=== PATIENT | female | born 1940 | race Caucasian/White ===

== ENCOUNTER → 2017-09-15 10:52 | Outpatient (CLI) | payer OTHER, SELFPAY ==
--- NOTE | 2017-09-15 | DI.MG.S_ITS ---
BILATERAL DIGITAL SCREENING MAMMOGRAM 3D/2D WITH CAD: 09/15/2017 CLINICAL: Routine screening. Family history of breast cancer. Comparison is made to exams dated: 09/15/2017 mammogram, 08/02/2016 mammogram, and 06/22/2015 mammogram - [facility]. The tissue of both breasts is heterogeneously dense. This may lower the sensitivity of mammography. Current study was also evaluated with a Computer Aided Detection (CAD) system. No significant masses, calcifications, or other findings are seen in either breast. There has been no significant interval change. IMPRESSION: NEGATIVE There is no mammographic evidence of malignancy. A 1 year screening mammogram is recommended. This exam was interpreted at Station ID: [id number]. NOTE: For mammograms, a report in lay terms will be sent to the patient. Approximately 15% of breast malignancies will not be visualized mammographically. In the management of a palpable breast mass, a negative mammogram must not discourage biopsy of a clinically suspicious lesion. Electronically Signed By: Pete kapadia/michell:09/15/2017 16:40:06 letter sent: Normal Exam ACR BI-RADS Category 1: Negative 3341F
== END ==
PROVIDERS: Family Provider Family Medicine; PCP Family Medicine; Visit Provider Family Medicine
DX: Z12.31 Encounter for screening mammogram for malignant neoplasm of breast (principal); Z80.3 Family history of malignant neoplasm of breast
CPT/HCPCS: 77063; 77067

== ENCOUNTER → 2018-08-21 15:45 | Outpatient (CLI) | payer OTHER, SELFPAY ==
[2018-08-21 18:46] LABS: Thyroid Stimulating Hormone 1.34 uIU/mL (0.47-4.68)
== END ==
PROVIDERS: PCP Family Medicine; Visit Provider Family Medicine
DX: E03.9 Hypothyroidism, unspecified (principal)
CPT/HCPCS: 84443

== ENCOUNTER → 2018-09-24 10:09 | Outpatient (CLI) | payer OTHER, SELFPAY ==
--- NOTE | 2018-09-24 10:09 | DI.MG.S_ITS ---
BILATERAL DIGITAL SCREENING MAMMOGRAM 3D/2D WITH CAD: 09/24/2018 CLINICAL: Routine screening. Family history of breast cancer. Comparison is made to exams dated: 09/15/2017 mammogram, 08/02/2016 mammogram, and 06/22/2015 mammogram - [facility]. The tissue of both breasts is heterogeneously dense. This may lower the sensitivity of mammography. Current study was also evaluated with a Computer Aided Detection (CAD) system. There are benign post operative findings in the left breast. No significant masses, calcifications, or other findings are seen in either breast. There has been no significant interval change. IMPRESSION: There is no mammographic evidence of malignancy. A 1 year screening mammogram is recommended. This exam was interpreted at Station ID: [id number]. NOTE: For mammograms, a report in lay terms will be sent to the patient. Approximately 15% of breast malignancies will not be visualized mammographically. In the management of a palpable breast mass, a negative mammogram must not discourage biopsy of a clinically suspicious lesion. Electronically Signed By: Good macias/michell:09/24/2018 10:49:46 letter sent: Normal Exam ACR BI-RADS Category 2: Benign Finding(s) 3342F
== END ==
PROVIDERS: PCP Family Medicine; Visit Provider Family Medicine
DX: Z12.31 Encounter for screening mammogram for malignant neoplasm of breast (principal); Z80.3 Family history of malignant neoplasm of breast; Z13.220 Encounter for screening for lipoid disorders
CPT/HCPCS: 77063; 77067

== ENCOUNTER → 2018-12-15 15:45 | Outpatient (CLI) | payer OTHER, SELFPAY ==
[2018-12-15 16:58] LABS: Erythrocyte Sedimentation Rate 1 MM/HR (0-20)
[2018-12-15 17:19] LABS: C-Reactive Protein Quant < 0.5 mg/dL (<1.0)
== END ==
PROVIDERS: PCP Family Medicine; Visit Provider Family Medicine
DX: R51 Headache (principal)
CPT/HCPCS: 36415; 85651; 86140

== ENCOUNTER 2019-06-18 08:14 | Day surgery (SDC) | payer OTHER, SELFPAY ==
[2019-06-18 08:51] VITALS: BP 160/86; PULSE 81; RESP 14; TEMP 36.7; O2SAT 99; BMI 20.7
[2019-06-18] MEDS: SODIUM CHLORIDE 0.9% 1,000 ML 200 ML IV (09:05)
--- NOTE | 2019-06-18 09:43 | PM.HP.1 ---
History of Present Illness History of Present Illness Date Patient Seen: 06/18/19 Time Patient Seen: 09:43 Chief complaint: [id number] Narrative: This is a 79-year-old woman with a history of colon cancer which was removed through a transanal excision in 2010. She is here for a surveillance colonoscopy. She has had them every 5 years since her surgery. She denies any current symptoms of melena or hematochezia, unexplained abdominal pain or unexplained weight loss. She says she is otherwise quite healthy, and denies any other concerning symptoms. ROS: Thirteen system review is otherwise negative other than as mentioned below and in HPI. PE: GENERAL: Well groomed and cooperative. Appears younger than stated age. Answers questions promptly and appropriately. Vital signs noted. HENT: Normocephalic, atraumatic. Hearing intact. Oral mucosa is pink and moist. EYES: Conjunctiva pink, sclera white, no periorbital swelling. CARDIOVASCULAR: Regular rate. No pedal edema. RESPIRATORY: Non-tachypneic, breathing comfortably on room air. GASTROINTESTINAL: Abdomen soft and non-distended GENITALURINARY: No flank tenderness. MUSCULOSKELETAL: Equal tone and mass bilaterally. SKIN: Warm, dry, soft, appropriate color for ethnicity. No other lesions, rashes, or wounds. NEURO: Alert and Oriented X 3. No gross sensory deficits, or cognitive issues. PSYCH: Appropriate affect and mood. Patient History Medical History Anemia (Chronic 1970) Ankle fracture (Resolved 2008) Ankle pain (Chronic 2008) Asthma (Chronic) Chicken pox (Resolved 1946) Chronic cough (Chronic 1999) Colorectal cancer (Resolved 2010) Diabetes mellitus (Chronic) Eczema (Chronic 1941) Hayfever (Chronic 1941) Hyperlipidemia (Chronic) Measles (Resolved 1953) Osteopenia (Chronic 1999) Plantar warts (Resolved 1955) Premature ventricular contractions (Chronic 2011) Shoulder pain (Chronic 2002) Squamous cell carcinoma of left lower leg (Resolved 08/2013) Thyroiditis (Chronic 1989) Urinary incontinence (Chronic 2012) Surgical History Anesthesia (Resolved) History of ankle surgery (Resolved 06/2008) History of cataract removal with insertion of prosthetic lens (Resolved) History of excision of mass (Resolved 04/2010) History of foot surgery (Resolved ~1997) History of oral surgery (Resolved 1999) History of squamous cell carcinoma excision (Resolved 08/2013) History of tonsillectomy (Resolved 1946) Status post breast biopsy (Resolved) Status post cholecystectomy (Resolved ~1984) Status post colonoscopy (Resolved 04/2010) Status post colonoscopy (Resolved 10/2010) Status post colonoscopy (Resolved 04/2011) Status post colonoscopy (Resolved 02/2014) Status post dilation and curettage (Resolved ~1967) Status post dilation and curettage (Resolved ~1968) Status post tubal ligation (Resolved ~1984) Family & Social History Family History Brother Alcohol abuse Diabetes mellitus Cancer Hypertension High cholesterol Septicemia Brother Alcohol abuse Drug abuse Drowning Child Age: 48 High cholesterol Child Age: 45 Seasonal allergies Mother Hypertension High cholesterol Heart disease Breast cancer Sister Age: 70 Atrial fibrillation Father Emphysema of lung Family/Other No problems noted. Social History: household members spouse lives independently Yes caregiver/support person No Tobacco & Substance use: Smoking Status Never smoker alcohol intake former Substance Use Type does not use Meds Home Medications and Allergies Home Medications Medication Instructions Recorded Confirmed Type aspirin 81 mg PO 3XW #0 03/07/11 06/18/19 History calcium carbonate [Calcium 500] 250 mg PO DAILY #0 03/07/11 06/18/19 History omega 2-obq-ryj-fish oil [Fish Oil] 2 cap PO DAILY #0 03/07/11 06/18/19 History omeprazole 20 mg PO QDAY #0 08/14/17 06/18/19 History cholecalciferol (vitamin D3) 50 2,000 unit PO DAILY 12/15/18 06/18/19 History mcg (2,000 unit) capsule simvastatin 20 mg tablet See Rx Instructions .ROUTE 02/05/19 06/18/19 Rx .COMPLEX #90 tablet cyanocobalamin (vitamin B-12) 1,000 mcg PO DAILY 06/18/19 06/18/19 History [Vitamin B-12] fluticasone propionate 2 spray INTRANASAL DAILY PRN 06/18/19 06/18/19 History Allergies Allergy/AdvReac Type Severity Reaction Status Date / Time egg [EGG] Allergy Unknown Gastrointestinal Verified 06/18/19 08:45 Upset Iodinated Contrast Media AdvReac Severe Verified 06/18/19 08:45 [IODINATED CONTRAST MEDIA - INJECTABLE IV DYE] IODINE - PAINFUL AT INJECTION SITE erythromycin base AdvReac Mild GI UPSET Unverified 12/15/18 14:53 [ERYTHROMYCIN BASE] oxycodone [OXYCODONE] AdvReac Mild GI UPSET Unverified 12/15/18 14:53 diphtheria,pertussis AdvReac Verified 06/18/19 06:10 (acell),tetanu Exam Vital Signs (past 8 hours): - 06/18/19 08:51 Temperature 98.0 F Pulse Rate 81 Respiratory Rate 14 Blood Pressure 160/86 H Pulse Oximetry 99 Oxygen Delivery Method Room Air Assessment & Plan Assessment and plan (1) History of colon cancer: Current visit: Yes Status: Acute Assessment & Plan narrative: Risks and benefits of screening colonoscopy and possible polypectomy were discussed with the patient including risk of bleeding, perforation, need for additional procedures, risks of anesthesia. The patient desires to proceed with the colonoscopy procedure. Time Spent With Patient Time with patient: 15-24 minutes Quality VTE Deep Vein Thrombosis/Pulmonary Embolism Present on Admission: No
--- NOTE | 2019-06-18 10:03 | PM.OP.ENDO ---
Operative Date/Time/Diagnoses Date of procedure: 06/18/19 Time of procedure: 10:04 Pre-op diagnosis: History of colon cancer Post-op diagnosis: other (History of colon cancer) Procedure & Clinicians Study performed: Attempted colonoscopy, could not get past rectosigmoid junction Same procedure as scheduled: No Indications: Patient with history of rectal cancer Surgeon: Hailee Lau Procedure Notes SCOAP/Timeout: Performed Procedure in detail: The patient was brought to the room and placed in left lateral decubitus position with all bony prominences padded. A time-out was performed and then the patient was given procedural sedation starting with 2 mg of Versed and [100] mcg of fentanyl. A total of 4 mg of Versed 150 micro g of fentanyl were given for the entire procedure. Vitals were monitored throughout the procedure and remained stable. Once adequately sedated the procedure was begun. A rectal exam was performed revealing [no abnormalities]. The colonoscope was then introduced to the rectum and I attempted to advance it through the colon. She had a very tight turn at the rectosigmoid junction, and I could not get around it even with multiple maneuvers. Ultimately procedure was aborted due to risk of perforation. The scope was then withdrawn from the rectum the procedure was concluded. The patient tolerated the procedure well and was transferred to the PACU in stable condition. Sedation minutes: 16 Specimen(s): none sent Complications: other (Unable to pass the rectosigmoid junction due to a very tight rectal valve or stenosis of the colon) Post-procedure Recommendations: Other recommendation (Will recommend barium enema, and consider repeat colonoscopy or CT colonography depending on findings of the barium enema) Plan for aftercare: Schedule for barium enema Follow up: weeks Disposition: PACU
[2019-06-18] MEDS: MIDAZOLAM 5 MG/ML VIAL 4 MG IV (10:07)
[2019-06-18] MEDS: fentaNYL 250 MCG/5 ML INJ IV (10:07)
[2019-06-18 10:08] VITALS: BP 108/65; PULSE 85; RESP 21; TEMP 36.1; O2SAT 94
[2019-06-18 10:13] VITALS: BP 94/52; PULSE 78; RESP 11; O2SAT 93
[2019-06-18 10:18] VITALS: BP 93/53; PULSE 75; RESP 11; O2SAT 95
[2019-06-18 10:23] VITALS: BP 127/82; PULSE 93; RESP 14; O2SAT 98
[2019-06-18 10:45] VITALS: BP 139/76; PULSE 74; RESP 20; O2SAT 97
== END 2019-06-18 11:00 | disposition home or self-care (01) ==
PROVIDERS: PCP Family Medicine; Referring Provider Family Medicine; Visit Provider Surgery
PROC: 0DJD8ZZ Inspection of Lower Intestinal Tract, Via Natural or Artificial Opening Endoscopic (ICD-10-PCS; CPT 45378; principal; 2019-06-18 09:15)
DX: Z12.11 Encounter for screening for malignant neoplasm of colon (principal); Z85.038 Personal history of other malignant neoplasm of large intestine; K62.4 Stenosis of anus and rectum; Z53.09 Procedure and treatment not carried out because of other contraindication
CPT/HCPCS: G0105; 99152; J2250; J3010

== ENCOUNTER → 2019-06-30 10:39 | Outpatient (CLI) | payer OTHER, SELFPAY ==
--- NOTE | 2019-06-30 10:42 | DI.RAD.S_ITS ---
PROCEDURE: FL ABDOMEN 1V (BARIUM ENEMA) INDICATIONS: incomplete colonoscopy; stenosis and rectosigmoid junction TECHNIQUE: One view of the abdomen acquired. COMPARISON: None. FINDINGS: Surgical changes and devices: None. Bowel: Bowel gas pattern is free of evidence of obstruction. There is a concern for presence of stool within the left colon, to the degree that the study will be delayed for additional bowel preparation. Soft tissues: No suspicious abdominal calcifications. Visualized solid organ contours appear normal in size. Bones: No suspicious bony lesions. IMPRESSION: Probable incomplete preparation for barium enema, and for this reason the patient will continue bowel preparation and return in one day before the examination. Dictated by: Geovanni Simpson M.D. on 06/30/2019 at 12:46 Approved by: Geovanni Simpson M.D. on 06/30/2019 at 12:47
== END ==
PROVIDERS: PCP Family Medicine; Referring Provider Surgery; Visit Provider Surgery
DX: Z12.11 Encounter for screening for malignant neoplasm of colon (principal); K56.699 Other intestinal obstruction unspecified as to partial versus complete obstruction; Z85.038 Personal history of other malignant neoplasm of large intestine
CPT/HCPCS: 74018

== ENCOUNTER → 2019-07-01 07:42 | Outpatient (CLI) | payer OTHER, SELFPAY ==
--- NOTE | 2019-07-01 | DI.RAD.S_ITS ---
PROCEDURE: FL BARIUM ENEMA W AIR CONTRAST INDICATIONS: Personal history of other malignant neoplasm of [place] COMPARISON: None. FINDINGS: KUB: Pre-procedural appraiser oil and water film demonstrates a normal bowel gas pattern. No suspicious abdominal calcifications. Visualized solid organ contours are normal in size. No suspicious bony lesions. Colon: There is adequate air-contrast opacification from the rectum to the cecum. No strictures, ulcers, polyps, or masses are seen. Haustral folds are normal in thickness throughout. No diverticula. IMPRESSION: No polyp is found, no area of stricture is identified. By this examination no significant diverticulosis would be suspected. Overall the study is excellent in quality, shows moderate redundancy of the colon, and no evidence of underlying benign stricture or presence of a malignant lesion. Dictated by: Geovanni Simpson M.D. on 07/01/2019 at 10:37 Approved by: Geovanni Simpson M.D. on 07/01/2019 at 10:39
== END ==
PROVIDERS: PCP Family Medicine; Referring Provider Surgery; Visit Provider Surgery
DX: Z12.11 Encounter for screening for malignant neoplasm of colon (principal); Z85.038 Personal history of other malignant neoplasm of large intestine; K56.699 Other intestinal obstruction unspecified as to partial versus complete obstruction
CPT/HCPCS: 74280

== ENCOUNTER → 2020-05-24 08:44 | Outpatient (CLI) | payer MEDICARE, SELFPAY ==
[2020-05-24] MEDS: COVID-19 VACC #1, MRNA(MOD) 100 MCG/0.5 ML VIAL IM (08:49)
== END ==
PROVIDERS: PCP Family Medicine; Visit Provider Internal Medicine
DX: Z23 Encounter for immunization (principal)
CPT/HCPCS: 0011A; 91301

== ENCOUNTER → 2020-06-21 08:59 | Outpatient (CLI) | payer MEDICARE, SELFPAY ==
[2020-06-21] MEDS: COVID-19 VACC #2, MRNA(MOD) 100 MCG/0.5 ML VIAL IM (09:07)
== END ==
PROVIDERS: PCP Family Medicine; Visit Provider Internal Medicine
DX: Z23 Encounter for immunization (principal)
CPT/HCPCS: 0012A; 91301

== ENCOUNTER → 2020-07-14 11:10 | Outpatient (CLI) | payer OTHER, SELFPAY ==
[2020-07-14 12:38] LABS: Alanine Aminotransferase 18 IU/L (<35); Albumin 4.8 g/dL (3.5-5.0); Albumin Globulin Ratio 1.7 (1.0-2.8); Alkaline Phosphatase 63 U/L (38-126); Aspartate Aminotransferase 32 IU/L (14-36); BUN Creatinine Ratio 21.1 (6-22); Bilirubin Total 0.5 mg/dL (0.2-1.3); Blood Urea Nitrogen 19 mg/dL (7-17); Calcium 10.2 mg/dL (8.4-10.2); Carbon Dioxide 27 mmol/L (22-32); Chloride 105 mmol/L (98-107); Cholesterol 199 mg/dL (140-199); Estimated Glomerular Filt Rate > 60.0 mL/min (>60); Globulin 2.9 g/dL (1.7-4.1); Glucose 97 mg/dL (80-110); HDL Cholesterol 83 mg/dL (40-60); HEMOLYSIS < 15 (0-50); LDL Cholesterol Calculated 92 mg/dL (<100); Potassium 4.2 mmol/L (3.4-5.1); Sodium 140 mmol/L (137-145); Total Protein 7.7 g/dL (6.3-8.2); Triglycerides 118 mg/dL (35-150)
[2020-07-14 13:09] LABS: TSH w/ Reflex to FT4 1.23 uIU/mL (0.47-4.68)
== END ==
PROVIDERS: PCP Family Medicine; Referring Provider Family Medicine; Visit Provider Family Medicine
DX: Z86.39 Personal history of other endocrine, nutritional and metabolic disease (principal); E78.5 Hyperlipidemia, unspecified
CPT/HCPCS: 36415; 80053; 80061; 84443

== ENCOUNTER → 2020-07-31 16:03 | Outpatient (CLI) | payer OTHER, SELFPAY ==
--- NOTE | 2020-07-31 16:05 | DI.MG.S_ITS ---
BILATERAL DIGITAL SCREENING MAMMOGRAM 3D/2D WITH CAD: 07/31/2020 CLINICAL: Routine screening. Family history of breast cancer. Comparison is made to exams dated: 09/24/2018 mammogram, 09/15/2017 mammogram, 09/15/2017 mammogram, 06/22/2015 mammogram, and 06/20/2014 mammogram - [facility]. The tissue of both breasts is heterogeneously dense. This may lower the sensitivity of mammography. Current study was also evaluated with a Computer Aided Detection (CAD) system. There are benign post operative findings in the left breast. No significant masses, calcifications, or other findings are seen in either breast. There has been no significant interval change. IMPRESSION: BENIGN There is no mammographic evidence of malignancy. A 1 year screening mammogram is recommended. This exam was interpreted at Station ID: [id number]. NOTE: For mammograms, a report in lay terms will be sent to the patient. Approximately 15% of breast malignancies will not be visualized mammographically. In the management of a palpable breast mass, a negative mammogram must not discourage biopsy of a clinically suspicious lesion. Electronically Signed By: Good macias/michell:07/31/2020 16:38:29 letter sent: Normal Exam ACR BI-RADS Category 2: Benign Finding(s) 3342F
== END ==
PROVIDERS: PCP Family Medicine; Referring Provider Family Medicine; Visit Provider Family Medicine
DX: Z12.31 Encounter for screening mammogram for malignant neoplasm of breast (principal)
CPT/HCPCS: 77063; 77067

== ENCOUNTER → 2021-07-20 10:04 | Outpatient (CLI) | payer OTHER, SELFPAY ==
[2021-07-20 12:07] LABS: Thyroid Stimulating Hormone 1.44 uIU/mL (0.47-4.68)
== END ==
PROVIDERS: PCP Family Medicine; Referring Provider Family Medicine; Visit Provider Family Medicine
DX: Z13.9 Encounter for screening, unspecified (principal)
CPT/HCPCS: 36415; 84443

== ENCOUNTER → 2021-07-23 08:19 | Outpatient (CLI) | payer OTHER, SELFPAY ==
[2021-07-25 15:15] LABS: Fecal Immunochemical Test Negative (Negative)
== END ==
PROVIDERS: PCP Family Medicine; Referring Provider Family Medicine; Visit Provider Family Medicine
DX: Z12.11 Encounter for screening for malignant neoplasm of colon (principal)
CPT/HCPCS: 82274

== ENCOUNTER → 2021-08-02 10:17 | Outpatient (CLI) | payer OTHER, SELFPAY ==
--- NOTE | 2021-08-02 | DI.MG.S_ITS ---
BILATERAL DIGITAL SCREENING MAMMOGRAM 3D/2D WITH CAD: 08/02/2021 CLINICAL: Routine screening. Family history of breast cancer. Comparison is made to exams dated: 07/31/2020 mammogram, 09/24/2018 mammogram, and 09/15/2017 mammogram - [facility]. The tissue of both breasts is heterogeneously dense. This may lower the sensitivity of mammography. Current study was also evaluated with a Computer Aided Detection (CAD) system. There are benign post operative findings in the left breast. No significant masses, calcifications, or other findings are seen in either breast. There has been no significant interval change. IMPRESSION: BENIGN There is no mammographic evidence of malignancy. A 1 year screening mammogram is recommended. This exam was interpreted at Station ID: [id number]. NOTE: For mammograms, a report in lay terms will be sent to the patient. Approximately 15% of breast malignancies will not be visualized mammographically. In the management of a palpable breast mass, a negative mammogram must not discourage biopsy of a clinically suspicious lesion. Electronically Signed By: Good macias/michell:08/02/2021 13:00:34 letter sent: Normal Exam ACR BI-RADS Category 2: Benign Finding(s) 3342F
== END ==
PROVIDERS: PCP Family Medicine; Referring Provider Family Medicine; Visit Provider Family Medicine
DX: Z12.31 Encounter for screening mammogram for malignant neoplasm of breast (principal); Z80.3 Family history of malignant neoplasm of breast
CPT/HCPCS: 77063; 77067

== ENCOUNTER 2022-04-09 13:17 | Emergency (ER) | payer OTHER, SELFPAY ==
[2022-04-09 13:27] VITALS: BP 134/85; PULSE 92; RESP 15; TEMP 36.1; O2SAT 95; BMI 21.7
--- NOTE | 2022-04-09 13:29 | DI.RAD.S_ITS ---
PROCEDURE: XR KNEE LT 3V INDICATIONS: knee injury,fell onto it TECHNIQUE: 3 views of the knee were acquired. COMPARISON: None. FINDINGS: Bones: Minimally displaced fracture of the patella. Soft tissues: Small suprapatellar joint effusion. No suspicious soft tissue calcifications. IMPRESSION: Patella fracture. Dictated by: Desire Zamudio MD, PhD on 04/09/2022 at 13:56 Approved by: Desire Zamudio MD, PhD on 04/09/2022 at 13:56
[2022-04-09 16:25] VITALS: BP 165/87; PULSE 90; O2SAT 96
--- NOTE | 2022-04-09 16:28 | ED.LOWEXIN ---
HPI - Extremity Injury (Lower) <Camila Soriano PA-C - Last Filed: 04/09/22 17:32> General Chief Complaint: Extremity Injury, Lower Stated Complaint: lt knee injury s/p fall Time Seen by Provider: 04/09/22 16:13 Source: patient Mode of arrival: Wheelchair History of Present Illness HPI Narrative: 82-year-old female presents with concern for left knee pain after she fell today while bringing her trash down the driveway. Patient states that her driveway slightly angled in his she near the bottom at the street where flattens out she slipped and had a mechanical fall and went down onto her hands and knees. She did not hit her head or sustain other injuries she has abrasions to her hands at the base but she says these feel fine. She also has abrasions to both knees but states that her left knee is very painful when she tries to straighten or bend her leg with any movement and she is been unable to walk on it without pain since the event. Some people were driving by and saw her and assisted her other than attempting to walk initially she has not walked on it at all since this happened. She denies any previous injury to this knee or any other complaints or concerns she also denies any numbness or tingling in the affected extremity, also denies any prodrome of dizziness palpitations or vision change prior to the event.. She did not hit her head or lose consciousness. Related Data Home Medications Medication Instructions Recorded Confirmed aspirin 81 mg tablet,delayed 81 mg PO 3XW ##0 03/07/11 07/14/20 release calcium carbonate 500 mg calcium 250 mg PO DAILY ##0 03/07/11 07/14/20 (1,250 mg) tablet (Calcium 500) omega 9-cjd-ghl-fish oil 1,000 mg 2 cap PO DAILY ##0 03/07/11 07/14/20 (120 mg-180 mg) capsule (Fish Oil) omeprazole 20 mg tablet,delayed 20 mg PO QDAY ##0 08/14/17 07/14/20 release cholecalciferol (vitamin D3) 50 2,000 unit PO DAILY 12/15/18 07/14/20 mcg (2,000 unit) capsule Previous Rx's Medication Instructions Recorded fluticasone propionate 50 2 spray intranasal DAILY #48 grams 07/06/21 mcg/actuation nasal spray,suspension (Allergy Relief (fluticasone)) simvastatin 20 mg tablet See Rx Instructions .Route 07/20/21 .COMPLEX #90 tabs nirmatrelvir 150 mg-ritonavir 100 See Rx Instructions PO PER PKG DIR 10/23/21 mg tablets in a dose pack (EUA) #20 tabs (Paxlovid) Allergies Allergy/AdvReac Type Severity Reaction Status Date / Time egg [EGG] Allergy Unknown Gastrointestinal Verified 04/09/22 13:26 Upset Iodinated Contrast Media AdvReac Severe Verified 04/09/22 13:26 [IODINATED CONTRAST MEDIA - INJECTABLE IV DYE] IODINE - PAINFUL AT INJECTION SITE erythromycin base AdvReac Mild GI UPSET Verified 04/09/22 13:26 [ERYTHROMYCIN BASE] oxycodone [OXYCODONE] AdvReac Mild GI UPSET Verified 04/09/22 13:26 diphtheria,pertussis AdvReac Verified 04/09/22 13:26 (acell)matthew Review of Systems <Camila Soriano PA-C - Last Filed: 04/09/22 17:32> Review of Systems Narrative: Unremarkable except as noted in the HPI Patient History <Camila Soriano PA-C - Last Filed: 04/09/22 17:32> Medical History Anemia (1970) Ankle fracture (2008) Ankle pain (2008) Asthma Chicken pox (1946) Chronic cough (1999) Colorectal cancer (2010) Eczema (1942) Hayfever (194) Hyperlipidemia Measles (1953) Osteopenia (1999) Plantar warts (1955) Premature ventricular contractions (2011) Shoulder pain (2002) 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) Thyroiditis (1989) Urinary incontinence (2012) Surgical History Anesthesia History of ankle surgery (06/2008) History of cataract removal with insertion of prosthetic lens History of excision of mass (04/2010) History of foot surgery (~1997) History of oral surgery (1999) History of squamous cell carcinoma excision (08/2013) History of tonsillectomy (194) Status post breast biopsy Status post cholecystectomy (~1984) Status post colonoscopy (04/2010) Status post colonoscopy (10/2010) Status post colonoscopy (04/2011) Status post colonoscopy (02/2014) Status post dilation and curettage (~1967) Status post dilation and curettage (~1968) Status post tubal ligation (~1984) Family History Brother Alcohol abuse Diabetes mellitus Cancer Hypertension High cholesterol Septicemia Brother Alcohol abuse Drug abuse Drowning Child Age: 50 High cholesterol Child Age: 47 Seasonal allergies Mother Hypertension High cholesterol Heart disease Breast cancer Sister Age: 72 Atrial fibrillation Father Emphysema of lung Family/Other No problems noted. Social History marital status: number of children: 3 household members: spouse lives independently: Yes caregiver/support person: No housing: house Smoking Status: Never smoker second hand exposure: No alcohol intake: former substance use type: does not use Smoking Status: Never smoker alcohol intake frequency: holidays/special occasions only Substance Use Type: does not use Exam <Camila Soriano PA-C - Last Filed: 04/09/22 17:32> Narrative Exam Narrative: GENERAL: 82 year old patient appears stated age. Well-developed patient, in mild distress. HEAD: Atraumatic. Normocephalic. EYES: Pupils equal round and reactive. Extraocular motions intact. No scleral icterus. No injection or drainage. ENT: Nose without bleeding, purulent drainage. Airway patent. NECK: Trachea midline. Non tender CARDIOVASCULAR: Regular rate and rhythm without murmurs, gallops, or rubs. RESPIRATORY: Clear to auscultation. Breath sounds equal bilaterally. No wheezes, rales, or rhonchi. EXTREMITIES: There are superficial abrasions to both palms at the base of the palm near the wrist. Bilateral wrists and hands have normal active range of motion and strength with normal movement of the fingers. Bilateral knees have abrasions. Right knee and lower extremity has normoactive range of motion pain-free. The left knee has swelling and an effusion lateral to the patella, there is significant tenderness with a polyp palpation over the patella, she has pain but is able to tolerate straightening the leg slightly. Movement at the ankle is intact. No edema or joint tenderness. Sensation of the affected extremities intact. BACK: Nontender without deformity or crepitance. No flank tenderness. NEURO: AOx3. SKIN: No rash or erythema of visible areas Initial Vital Signs Initial Vital Signs: Vital Signs Temperature 97.0 F L 04/09/22 13:27 Pulse Rate 92 H 04/09/22 13:27 Respiratory Rate 15 04/09/22 13:27 Blood Pressure 134/85 04/09/22 13:27 Pulse Oximetry 95 04/09/22 13:27 Oxygen Delivery Method 04/09/22 13:27 <Dinorah Quezada DO - Last Filed: 04/10/22 23:07> Initial Vital Signs Initial Vital Signs: Vital Signs Temperature 97.0 F L 04/09/22 13:27 Pulse Rate 92 H 04/09/22 13:27 Respiratory Rate 15 04/09/22 13:27 Blood Pressure 134/85 04/09/22 13:27 Pulse Oximetry 95 04/09/22 13:27 Oxygen Delivery Method 04/09/22 13:27 Course <Camila Soriano PA-C - Last Filed: 04/09/22 17:32> Orders Ordered: ED Orders 04/09/22 13:29 XR knee LT 3V Stat Consultations Consultation #1: Did review imaging and discussed this patient with attending physician Dr. Quezada, feels knee immobilizeris appropriate with crutches and close orthopedic follow-up as she may need surgery. Time: 16:30 Vital Signs Vital signs: Vital Signs - 8 hr 04/09/22 13:27 04/09/22 16:25 Temperature 97.0 F L Pulse Rate 92 H 90 Respiratory Rate 15 Blood Pressure 134/85 165/87 H Pulse Oximetry 95 96 Oxygen Delivery Method Room Air Room Air <Dinorah Quezada DO - Last Filed: 04/10/22 23:07> Orders Ordered: ED Orders 04/09/22 13:29 XR knee LT 3V Stat Vital Signs Vital signs: Vital Signs - 8 hr 04/09/22 13:27 04/09/22 16:25 Temperature 97.0 F L Pulse Rate 92 H 90 Respiratory Rate 15 Blood Pressure 134/85 165/87 H Pulse Oximetry 95 96 Oxygen Delivery Method Room Air Room Air MDM - Extremity Injury (Lower) <Camila Soriano PA-C - Last Filed: 04/09/22 17:32> Differential Diagnosis Differential diagnosis: Likely acute internal derangement of knee and other Imaging Data Extremity x-ray #1: My Impression: I have reviewed the imaging and agree with radiologist's interpretation. Radiologist's Impression: [address] [address] XRay Report Signed Patient: Christine Torres MR#: [id number] : 1940 Acct:[id number] Age/Sex: 82 / F Date of Service: 04/09/22 Loc: ED Accession Number: [id number] ?? Procedure: XR knee LT 3V Ordering Provider: Dinorah Quezada D.O. PROCEDURE:? XR KNEE LT 3V ? INDICATIONS:? knee injury,fell onto it ? TECHNIQUE:? 3 views of the knee were acquired.? ? COMPARISON:? None. ? FINDINGS:? ? Bones:? Minimally displaced fracture of the patella. ? Soft tissues:? Small suprapatellar joint effusion.? No suspicious soft tissue calcifications.? ? ? IMPRESSION:? Patella fracture. ? ? Dictated by: Desire Zamudio MD, PhD on 04/09/2022 at 13:56 ? ? Approved by: Desire Zamudio MD, PhD on 04/09/2022 at 13:56?? MDM Narrative Medical decision making narrative: This is an 82-year-old female who is normally active and ambulatory without assistance presents with left knee pain after falling onto hands and knees today on a slight slope. Imaging with x-ray reveals a patellar fracture laterally with pieces well-positioned/well-aligned. Patient is placed in a knee immobilizer for support and provided with crutches. Patient has used crutches previously due to previous ankle injury and feels comfortable with this. Referral for Orthopedics for close follow-up for consultation and possible surgery. She is encouraged to take Tylenol and ibuprofen or Advil for pain as well as use elevation and rest. She is advised to stay off of the affected extremity and be nonweightbearing on it. Return precautions provided, follow-up plan discussed, all questions answered. Discharge Plan Departure Patient Disposition: Home Clinical Impression: Fracture, patella, Fall Instructions: DI for Fracture Activity Restrictions/Additional Instructions: Thank you for letting us be part of her care in the emergency department today. Unfortunately did fracture your knee cap or patella on the left. It is possible that this will require surgery and he will need to follow-up with Orthopedics, I have placed a referral to them today. Also recommend using Tylenol and ibuprofen to help with pain as well as ice if that feels better, we placed you in a supportive knee immobilizer device as well as given crutches as I would like you to be not putting weight on the affected leg until you are further evaluated by Orthopedics. There is no evidence of an emergent or life threatening illness at this time, but follow up with your doctor in 1-2 days is recommended nonetheless to continue to rule out serious underlying causes of your symptoms. Please call the office for an appointment. Please return to the Emergency Department for any worsening or persistent symptoms. Please take medications as directed. Prescriptions: No Action cholecalciferol (vitamin D3) 2,000 unit capsule 2,000 unit PO DAILY simvastatin 20 mg tablet See Rx Instructions .ROUTE .COMPLEX Qty: 90 3RF Dose Instruction: Take 1 tablet (20 mg) by mouth daily Rx Instructions: Take 1 tablet (20 mg) by mouth daily calcium carbonate [Calcium 500] 500 mg calcium (1,250 mg) Tablet 250 mg PO DAILY Qty: 0 omega 0-ahe-mkv-fish oil [Fish Oil] 1,000 mg (120 mg-180 mg) Capsule 2 cap PO DAILY Qty: 0 aspirin 81 MG tablet,delayed release (DR/EC) 81 mg PO 3XW Qty: 0 omeprazole 20 MG tablet,delayed release (DR/EC) 20 mg PO QDAY Qty: 0 fluticasone propionate [Allergy Relief (fluticasone)] 50 mcg/actuation spray,suspension 2 spray intranasal DAILY Qty: 48 3RF Rx Instructions: administer into each nostril Paxlovid (EUA) 150-100 mg tablet See Rx Instructions PO PER PKG DIR Qty: 20 0RF Rx Instructions: PO PER PKG DIR Referrals: Myriam Maciel MD [Primary Care Provider] - Siddhartha German MD [Physician] - As soon as possible (Left patellar Fx w/o displacement) Visit Report Forms: Patient Portal/API <Dinorah Quezada DO - Last Filed: 04/10/22 23:07> Cosign ED Attending Cospatriciaature Attestation: I was immediately available in the department for consultation. Documentation has been reviewed. I agree with assessment and plan.
== END 2022-04-09 17:23 | disposition home or self-care (01) ==
PROVIDERS: Emergency Provider Student in an Organized Health Care Education/Training Program; PCP Family Medicine
DX: S82.002A Unspecified fracture of left patella, initial encounter for closed fracture (principal); W01.0XXA Fall on same level from slipping, tripping and stumbling without subsequent striking against object, initial encounter
CPT/HCPCS: 29530; 73562; 99283

== ENCOUNTER → 2022-07-25 07:48 | Outpatient (CLI) | payer OTHER, SELFPAY ==
[2022-07-25 09:36] LABS: Alanine Aminotransferase 19 IU/L (<35); Albumin 4.2 g/dL (3.5-5.0); Albumin Globulin Ratio 1.5 (1.0-2.8); Alkaline Phosphatase 52 U/L (38-126); Aspartate Aminotransferase 27 IU/L (14-36); BUN Creatinine Ratio 21.4 (6-22); Bilirubin Total 0.2 mg/dL (0.2-1.3); Blood Urea Nitrogen 18 mg/dL (7-17); Calcium 9.7 mg/dL (8.4-10.2); Carbon Dioxide 29 mmol/L (22-32); Chloride 106 mmol/L (98-107); Cholesterol 172 mg/dL (140-199); Estimated Glomerular Filt Rate > 60 mL/min (>60); Globulin 2.8 g/dL (1.7-4.1); Glucose 85 mg/dL (80-110); HDL Cholesterol 76 mg/dL (40-60); HEMOLYSIS < 15 (0-50); LDL Cholesterol Calculated 79 mg/dL (<100); Potassium 3.8 mmol/L (3.4-5.1); Sodium 140 mmol/L (137-145); Triglycerides 83 mg/dL (35-150)
[2022-07-25 10:18] LABS: TSH w/ Reflex to FT4 1.54 uIU/mL (0.47-4.68)
== END ==
PROVIDERS: PCP Family Medicine; Referring Provider Family Medicine; Visit Provider Family Medicine
DX: E78.5 Hyperlipidemia, unspecified (principal); R53.83 Other fatigue
CPT/HCPCS: 36415; 80053; 80061; 84443

== ENCOUNTER → 2023-02-20 14:57 | Outpatient (CLI) | payer OTHER, SELFPAY ==
[2023-02-20 15:26] LABS: Add Manual Diff / Slide Review NO; Basophils Absolute Auto 100 /uL (0-100); Basophils Percent Auto 1.3 % (0-2); Eosinophils Absolute Auto 200 /uL (0-450); Eosinophils Percent Auto 3.2 % (2-4); Hematocrit 40.6 % (36-46); Hemoglobin 13.7 g/dL (12.0-16.0); Lymphocytes Absolute Auto 2800 /uL (1100-4500); Lymphocytes Percent Auto 37.3 % (25-40); Mean Corpuscular HGB Conc 33.9 % (30-36); Mean Corpuscular Hemoglobin 30.5 PG (26-34); Mean Corpuscular Volume 90.1 fL (80-100); Monocytes Absolute Auto 800 /uL (0-900); Neutrophils Absolute Auto 3600 /uL (1500-7000); Neutrophils Percent Auto 48.2 % (50-75); Platelet Count 335 X10^3/uL (150-400); White Blood Cell Count 7.6 X10^3/uL (4.5-11.0)
== END ==
PROVIDERS: PCP Family Medicine; Referring Provider Physician Assistant; Visit Provider Physician Assistant
DX: R21 Rash and other nonspecific skin eruption (principal); J34.89 Other specified disorders of nose and nasal sinuses
CPT/HCPCS: 36415; 85025

== ENCOUNTER → 2023-02-26 09:03 | Outpatient (CLI) | payer OTHER, SELFPAY ==
--- NOTE | 2023-02-26 09:04 | DI.CT.S_ITS ---
PROCEDURE: CT SINUS SCREEN WO CON INDICATIONS: Sinus pressure R side; persistent rash TECHNIQUE: Noncontrast 3.0 mm axial images acquired from the frontal sinuses to the mid-sella, with coronal and sagittal reformats. For radiation dose reduction, the following was used: automated exposure control, adjustment of mA and/or kV according to patient size. COMPARISON: None. FINDINGS: Image quality: Excellent. Maxillary Sinuses: No bony remodeling or destruction. Minimal mucosal thickening inferiorly. Ethmoid Air Cells: No bony remodeling or destruction. Sinuses are clear. Sphenoid Sinuses: No bony remodeling or destruction. Sinuses are clear. Frontal Sinuses: No bony remodeling or destruction. Sinuses are clear. Ostiomeatal Complexes: Ostiomeatal complexes are patent. No Tonya cells. Miscellaneous: Visualized intra-orbital contents are normal. Bilateral lens replacements. No juan bullosa or paradoxical turbinate curvature. Mild rightward nasal septal deviation. IMPRESSION: No significant paranasal sinus disease. Dictated by: Derik Santa M.D. on 02/26/2023 at 10:03 Approved by: Derik Santa M.D. on 02/26/2023 at 10:05
== END ==
PROVIDERS: PCP Family Medicine; Referring Provider Physician Assistant; Visit Provider Physician Assistant
DX: J01.90 Acute sinusitis, unspecified (principal); J34.89 Other specified disorders of nose and nasal sinuses; J34.2 Deviated nasal septum
CPT/HCPCS: 70486

== ENCOUNTER → 2023-08-19 07:59 | Outpatient (CLI) | payer OTHER, SELFPAY ==
[2023-08-19 09:33] LABS: Alanine Aminotransferase 22 IU/L (<35); Albumin 4.5 g/dL (3.5-5.0); Albumin Globulin Ratio 1.7 (1.0-2.8); Alkaline Phosphatase 59 U/L (38-126); Aspartate Aminotransferase 31 IU/L (14-36); BUN Creatinine Ratio 17.8 (6-22); Bilirubin Total 0.7 mg/dL (0.2-1.3); Blood Urea Nitrogen 16 mg/dL (7-17); Calcium 10.2 mg/dL (8.4-10.2); Carbon Dioxide 29 mmol/L (22-32); Chloride 105 mmol/L (98-107); Cholesterol 219 mg/dL (140-199); Estimated Glomerular Filt Rate > 60 mL/min (>60); Globulin 2.7 g/dL (1.7-4.1); Glucose 96 mg/dL (80-110); HDL Cholesterol 78 mg/dL (40-60); HEMOLYSIS < 15 (0-50); LDL Cholesterol Calculated 118 mg/dL (<100); Potassium 4.2 mmol/L (3.4-5.1); Sodium 139 mmol/L (137-145); Total Protein 7.2 g/dL (6.3-8.2); Triglycerides 117 mg/dL (35-150)
[2023-08-19 10:16] LABS: TSH w/ Reflex to FT4 0.93 uIU/mL (0.47-4.68)
== END ==
PROVIDERS: PCP Family Medicine; Referring Provider Family Medicine; Visit Provider Family Medicine
DX: E78.5 Hyperlipidemia, unspecified (principal); E06.9 Thyroiditis, unspecified
CPT/HCPCS: 36415; 80053; 80061; 84443

== ENCOUNTER → 2023-08-25 08:28 | Outpatient (CLI) | payer OTHER, SELFPAY ==
--- NOTE | 2023-08-25 08:29 | DI.MG.S_ITS ---
BILATERAL DIGITAL SCREENING MAMMOGRAM 3D/2D WITH CAD: 08/25/2023 CLINICAL: Routine screening. Family history of breast cancer. Comparison is made to exams dated: 08/02/2021 mammogram, 07/31/2020 mammogram, and 09/24/2018 mammogram - . Both breasts are heterogeneously dense, which may obscure small masses (category c / 51-75% glandular tissue). Current study was also evaluated with a Computer Aided Detection (CAD) system. There are benign post operative findings in the left breast. No significant masses, calcifications, or other findings are seen in either breast. There has been no significant interval change. IMPRESSION: BENIGN There is no mammographic evidence of malignancy. A 1 year screening mammogram is recommended. Based on the Tyrer Cuzick model (a risk assessment model) the patient's lifetime risk is 1.1% and her 10 year risk is 0.0%. According to the ACR, ACS, and NCCN guidelines, an annual breast MRI exam along with mammogram is recommended if the patient's lifetime risk is 20% or greater. This exam was interpreted at Station ID: [id number]. NOTE: For mammograms, a report in lay terms will be sent to the patient. Approximately 15% of breast malignancies will not be visualized mammographically. In the management of a palpable breast mass, a negative mammogram must not discourage biopsy of a clinically suspicious lesion. Electronically Signed By: Good macias/michell:08/25/2023 10:58:34 letter sent: Normal Exam ACR BI-RADS Category 2: Benign Finding(s) 3342F
== END ==
LOC: MAMMO 08:29
PROVIDERS: PCP Family Medicine; Referring Provider Family Medicine; Visit Provider Family Medicine
DX: Z12.31 Encounter for screening mammogram for malignant neoplasm of breast (principal); Z80.3 Family history of malignant neoplasm of breast; R92.333 Mammographic heterogeneous density, bilateral breasts
CPT/HCPCS: 77063; 77067

== ENCOUNTER → 2024-08-20 07:44 | Outpatient (CLI) | payer OTHER, SELFPAY ==
[2024-08-20 08:55] LABS: Alanine Aminotransferase 21 IU/L (<35); Albumin 4.4 g/dL (3.5-5.0); Albumin Globulin Ratio 1.8 (1.0-2.8); Alkaline Phosphatase 59 U/L (38-126); Aspartate Aminotransferase 32 IU/L (14-36); BUN Creatinine Ratio 21.6 (6-22); Bilirubin Total 0.8 mg/dL (0.2-1.3); Blood Urea Nitrogen 19 mg/dL (7-17); Carbon Dioxide 26 mmol/L (22-32); Chloride 106 mmol/L (98-107); Cholesterol 184 mg/dL (140-199); Estimated Glomerular Filt Rate > 60 mL/min (>60); Globulin 2.4 g/dL (1.7-4.1); Glucose 96 mg/dL (70-99); HDL Cholesterol 85 mg/dL (40-60); HEMOLYSIS < 15 (0-50); LDL Cholesterol Calculated 77 mg/dL (<100); Potassium 4.6 mmol/L (3.4-5.1); Sodium 139 mmol/L (137-145); Total Protein 6.8 g/dL (6.3-8.2); Triglycerides 109 mg/dL (35-150)
[2024-08-20 09:23] LABS: Thyroid Stimulating Hormone 1.06 uIU/mL (0.47-4.68)
== END ==
LOC: LAB 07:45
PROVIDERS: PCP Family Medicine; Referring Provider Family Medicine; Visit Provider Family Medicine
DX: E78.5 Hyperlipidemia, unspecified (principal); R53.83 Other fatigue; Z12.11 Encounter for screening for malignant neoplasm of colon
CPT/HCPCS: 36415; 80053; 80061; 82274; 84443

== ENCOUNTER → 2024-08-25 08:08 | Outpatient (CLI) | payer OTHER, SELFPAY ==
--- NOTE | 2024-08-25 08:10 | DI.MG.S_ITS ---
MM screening mammo BI: 08/25/2024. BI-RADS: 1 CLINICAL: 84-year old female for bilateral screening mammogram. Tyrer-Cuzick lifetime risk of 2.0%. Current reported family history of breast cancer: mother, paternal aunt and second paternal aunt. The patient had a prior left breast biopsy. PRIOR EXAMS 08/02/2021, 07/31/2020, 09/24/2018. MAMMOGRAPHY TECHNIQUE: 2D and 3D (tomosynthesis) digital mammographic views obtained, with additional images as needed for full coverage. Current study was also evaluated with a Computer Aided Detection (CAD) system. DENSITY C. The breasts are heterogeneously dense, which may obscure small masses. MAMMOGRAPHY FINDINGS Bilateral: No suspicious mass, asymmetry, microcalcification, or other abnormality seen. No significant change from comparison. IMPRESSION: * No evidence of malignancy. RECOMMENDATIONS Bilateral * Annual screening mammography. OVERALL ASSESSMENT CATEGORY BI-RADS-1: Negative. The [employer] recommends annual screening mammography beginning at age 40 for women with average risk of breast cancer. ELECTRONICALLY SIGNED: Dickson Sanchez M.D. on 08/25/2024 at 01:35:45 PM PT Interpreting Station ID: [id number]
== END ==
PROVIDERS: PCP Family Medicine; Referring Provider Family Medicine; Visit Provider Family Medicine
DX: Z12.31 Encounter for screening mammogram for malignant neoplasm of breast (principal); Z80.3 Family history of malignant neoplasm of breast; R92.333 Mammographic heterogeneous density, bilateral breasts
CPT/HCPCS: 77063; 77067

== ENCOUNTER 2024-09-18 15:41 | Inpatient (IN) | payer OTHER, SELFPAY ==
[2024-09-18] VITALS (12 sets, daily range): BP systolic 152–207; BP diastolic 74–103; PULSE 68–93; RESP 17–23; TEMP 36.3–36.9; O2SAT 95–98; BMI 20.8
--- NOTE | 2024-09-18 15:59 | DI.RAD.S_ITS ---
PROCEDURE: XR HIP W PEL IF DONE LT 2V INDICATIONS: Fall with hip swelling and pain TECHNIQUE: AP pelvis with lateral view of the left hip. COMPARISON: None. FINDINGS: Bones: Mildly displaced comminuted intertrochanteric fracture of the left proximal femur. Generalized osteopenia. Pelvic bones otherwise appear to be intact. Soft tissues: The visualized bowel gas pattern is normal. No suspicious soft tissue calcifications. IMPRESSION: Mildly displaced comminuted intertrochanteric fracture of the left proximal femur. Approved by: Dickson Sanchez M.D. on 09/18/2024 at 15:49
[2024-09-18] MEDS: HYDROMORPHONE 1 MG INJ IV ×2 (16:06→22:13)
--- NOTE | 2024-09-18 17:06 | DI.RAD.S_ITS ---
PROCEDURE: XR CHEST 1V INDICATIONS: preop TECHNIQUE: One view of the chest was acquired. COMPARISON: [facility], , CHEST 2 VIEW, 08/12/2016, 10:25. FINDINGS: Surgical changes and devices: None. Lungs and pleura: Lungs are clear. No pleural effusions or pneumothorax. Mediastinum: Mediastinal contours appear normal. Heart size is normal. Bones and chest wall: No suspicious bony lesions. Overlying soft tissues appear unremarkable. IMPRESSION: No acute cardiopulmonary abnormality is seen. Approved by: Dickson Sanchez M.D. on 09/18/2024 at 16:38
--- NOTE | 2024-09-18 17:14 | EKG_ITS ---
[facility] [address] [place] [address] Test Date: 2024-09-18 Pat Name: Christine Torres Department: [facility] Room: Gender: Female Coater Associate: : 1940 Requested By: Order Number: [id number] Reading MD: Chaitanya Adorno MD Measurements Intervals [place] Rate: 81 P: 67 MT: 162 QRS: 2 QRSD: 90 T: 45 QT: 408 QTc: 473 Interpretive Statements Normal sinus rhythm Electronically Signed On 09-18-2024 20:03:21 PDT by Chaitanya Adorno MD
[2024-09-18 17:15] LABS: INR 1.1 (0.9-1.3)
[2024-09-18 17:16] LABS: Add Manual Diff / Slide Review NO; Basophils Absolute Auto 100 /uL (0-100); Basophils Percent Auto 0.6 % (0-2); Eosinophils Absolute Auto 200 /uL (0-450); Eosinophils Percent Auto 1.7 % (2-4); Hematocrit 41.8 % (36-46); Hemoglobin 14.1 g/dL (12.0-16.0); Lymphocytes Absolute Auto 3600 /uL (1100-4500); Lymphocytes Percent Auto 40.9 % (25-40); Mean Corpuscular HGB Conc 33.6 % (30-36); Mean Corpuscular Hemoglobin 31.1 PG (26-34); Mean Corpuscular Volume 92.5 fL (80-100); Monocytes Absolute Auto 1000 /uL (0-900); Monocytes Percent Auto 10.7 % (3-14); Neutrophils Absolute Auto 4100 /uL (1500-7000); Neutrophils Percent Auto 46.1 % (50-75); Platelet Count 270 X10^3/uL (150-400); Red Blood Cell Count 4.53 X10^6/uL (4.0-5.2); Red Cell Distribution Width 14.1 % (11.6-14.8); White Blood Cell Count 8.9 X10^3/uL (4.5-11.0)
[2024-09-18 17:30] LABS: Alanine Aminotransferase 22 IU/L (<35); Albumin 4.6 g/dL (3.5-5.0); Albumin Globulin Ratio 1.7 (1.0-2.8); Alkaline Phosphatase 69 U/L (38-126); Aspartate Aminotransferase 55 IU/L (14-36); BUN Creatinine Ratio 18.5 (6-22); Bilirubin Total 0.7 mg/dL (0.2-1.3); Blood Urea Nitrogen 17 mg/dL (7-17); Calcium 10.2 mg/dL (8.4-10.2); Carbon Dioxide 24 mmol/L (22-32); Chloride 105 mmol/L (98-107); Estimated Glomerular Filt Rate > 60 mL/min (>60); Globulin 2.7 g/dL (1.7-4.1); Glucose 107 mg/dL (70-99); HEMOLYSIS 27 (0-50); Potassium 3.8 mmol/L (3.4-5.1); Sodium 136 mmol/L (137-145); Total Protein 7.3 g/dL (6.3-8.2)
--- NOTE | 2024-09-18 18:09 | ED_ITS ---
HPI - Extremity Injury (Lower) General Chief Complaint: Extremity Injury, Lower Stated Complaint: L hip pain Time Seen by Provider: 09/18/24 17:05 Source: patient and EMS Mode of arrival: EMS History of Present Illness HPI Narrative: 84-year-old female hx of Dyslipidemia not on any anticoagulants brought in via EMS for a fall after tripping over elevated portion of the sidewalk while gardening today unable to walk at this time given fentanyl prior to arrival due to significant pain. Patient denies loss of consciousness, headache, dizziness, blurred vision, neck pain, chest pain, back pain, abdominal pain, nausea, vomiting, bowel or bladder incontinence, numbness, tingling, down the leg. Other than what is stated 14 point review of system is Related Data Home Medications Medication Instructions Recorded Confirmed calcium carbonate (Calcium 500) 250 mg PO DAILY ##0 03/07/11 08/18/24 omega 4-akv-fxy-fish oil 1,000 mg 2 cap PO DAILY ##0 03/07/11 08/18/24 (120 mg-180 mg) capsule (Fish Oil) cholecalciferol (vitamin D3) 50 2,000 unit PO DAILY 12/15/18 08/18/24 mcg (2,000 unit) capsule ceramides 1,3,6-II (CeraVe topical 1 applic topical QD-BID PRN 09/04/22 08/18/24 cream) ciclopirox 8 % topical solution 1 applic topical BEDTIME 09/04/22 08/18/24 betamethasone dipropionate 0.05 % topical Rash 08/18/24 08/18/24 lotion clindamycin HCl 300 mg capsule 300 mg PO TID Root canal infection 08/18/24 08/18/24 psyllium husk 3.4 gram/5.8 gram g PO Bowel health 08/18/24 08/18/24 oral powder (Metamucil Sugar-Free (aspartame)) Previous Rx's Medication Instructions Recorded simvastatin 20 mg tablet See Rx Instructions .Route 08/18/24 .COMPLEX #90 tabs Allergies Allergy/AdvReac Type Severity Reaction Status Date / Time Gmcnsdq-NIT-QhG Reductase Allergy Severe Rash Verified 08/18/24 14:47 Inhibitor egg [EGG] Allergy Unknown Gastrointestinal Verified 08/18/24 14:47 Upset Iodinated Contrast Media AdvReac Severe Verified 08/18/24 14:47 [IODINATED CONTRAST MEDIA - INJECTABLE IV DYE] IODINE - PAINFUL AT INJECTION SITE erythromycin base AdvReac Mild GI UPSET Verified 08/18/24 14:47 [ERYTHROMYCIN BASE] oxycodone [OXYCODONE] AdvReac Mild GI UPSET Verified 08/18/24 14:47 diphtheria,pertussis AdvReac Verified 08/18/24 14:47 (holly)matthew Review of Systems Review of Systems ROS Unobtainable: All systems reviewed & are unremarkable except as noted in HPI and below Patient History Medical History (Updated 09/18/24 @ 18:33 by Chaitanya Solo DO) Carpal tunnel syndrome (03/07/11) Abnormal mammogram (04/28/69) Chronic cough (1999) Asthma Hayfever (1941) Shoulder pain (2002) Osteopenia (1999) Ankle fracture (2008) Ankle pain (2008) Plantar warts (1955) Eczema (1941) Measles (1953) Chicken pox (1946) Anemia (1970) Urinary incontinence (2012) Thyroiditis (1989) Premature ventricular contractions (2011) Hyperlipidemia Colorectal cancer (2010) 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) Surgical History (Updated 09/18/24 @ 18:28 by Chaitanya Adorno MD) [place] teeth removed (04/28/1950) Anesthesia History of oral surgery (1999) History of squamous cell carcinoma excision (08/2013) History of excision of mass (04/2010) History of ankle surgery (06/2008) History of foot surgery (~1997) History of cataract removal with insertion of prosthetic lens Status post colonoscopy (02/2014) Status post colonoscopy (04/2011) Status post colonoscopy (10/2010) Status post colonoscopy (04/2010) Status post tubal ligation (~1984) Status post cholecystectomy (~1984) Status post breast biopsy Status post dilation and curettage (~1968) Status post dilation and curettage (~1967) History of tonsillectomy (1946) Family History Brother Alcohol abuse Diabetes mellitus Cancer Hypertension High cholesterol Septicemia Brother Alcohol abuse Drug abuse [place] Child Age: 53 High cholesterol Child Age: 50 Seasonal allergies Mother Hypertension High cholesterol Heart disease Breast cancer Sister Age: 75 Atrial fibrillation Father Emphysema of lung Family/Other No problems noted. Social History marital status: number of children: 3 household members: spouse lives independently: Yes caregiver/support person: No housing: house Smoking Status: Never smoker second hand exposure: No alcohol intake: former substance use type: does not use Smoking Status: Never smoker alcohol intake frequency: holidays/special occasions only Exam Narrative Exam Narrative: GENERAL: [84] year old patient appears stated age. Well-developed patient, in mild distress. HEAD: Atraumatic. Normocephalic. EYES: Pupils equal round and reactive. Extraocular motions intact. No scleral icterus. No injection or drainage. ENT: Nose without bleeding, purulent drainage. Throat without erythema, tonsillar hypertrophy or exudate. Airway patent. NECK: Trachea midline. Non tender CARDIOVASCULAR: Regular rate and rhythm without murmurs, gallops, or rubs. RESPIRATORY: Clear to auscultation. Breath sounds equal bilaterally. No wheezes, rales, or rhonchi. GASTROINTESTINAL: Abdomen soft, non-tender, nondistended. EXTREMITIES: No edema or joint tenderness. Left hip short externally rotated, motor and sensory intact +2DP +2PT cap refill <2secs BACK: Nontender without deformity or crepitance. No flank tenderness. NEURO: AOx3. SKIN: No rash or erythema of visible areas Initial Vital Signs Initial Vital Signs: Vital Signs Temperature 98.5 F 09/18/24 15:45 Pulse Rate 93 H 09/18/24 15:45 Respiratory Rate 22 09/18/24 15:45 Blood Pressure 207/101 H 09/18/24 15:45 Pulse Oximetry 98 09/18/24 15:45 Oxygen Delivery Method Room Air 09/18/24 15:45 Course Orders Ordered: ED Orders 09/18/24 15:40 CBC Auto Diff [Complete Blood Count AUTO DIFF] Stat CMP [Comprehensive Metabolic Panel] Stat Prothrombin Time INR Stat 09/18/24 15:59 XR hip w pel LT 2V Stat 09/18/24 17:06 XR chest 1V Stat Urinalysis and Microscopic Stat 09/18/24 17:07 EKG-12 Lead Stat Discontinued Medications Hydromorphone HCl (Hydromorphone 1 Mg Inj) 1 mg IV NOW ONE Stop: 09/18/24 16:03 Last Admin: 09/18/24 16:06 Dose: 1 mg Documented By: RB Vital Signs Vital signs: Vital Signs - 8 hr 09/18/24 15:45 09/18/24 15:53 09/18/24 16:00 Temperature 98.5 F Pulse Rate 93 H 91 H Pulse Rate [Left Dorsalis Pedis] 68 Respiratory Rate 22 17 Blood Pressure 207/101 H Pulse Oximetry 98 97 Oxygen Delivery Method Room Air 09/18/24 16:00 09/18/24 16:30 09/18/24 16:30 Temperature Pulse Rate 89 Pulse Rate [Left Dorsalis Pedis] Respiratory Rate 17 Blood Pressure 203/103 H 190/94 H Pulse Oximetry 95 Oxygen Delivery Method 09/18/24 17:00 09/18/24 17:00 09/18/24 17:30 Temperature Pulse Rate 77 83 Pulse Rate [Left Dorsalis Pedis] Respiratory Rate 23 22 Blood Pressure 152/77 H Pulse Oximetry 98 96 Oxygen Delivery Method All lab work, vital signs, nurse triage note, medication list, and x-rays all reviewed. Patient is not on any steroids and not on any anticoagulants. left hip x-ray showed mildly displaced comminuted intertrochanteric fracture of the left proximal femur. Chest x-ray showed no acute process. Differential diagnosis include fracture, dislocation, contusion. case discussed with Dr. Palacios orthopedic surgeon on-call who agrees patient will need surgery and plans on performing surgery tomorrow provided that hospitalist is able to medically clear patient for surgery tomorrow. Case discussed with Dr. Chaitanya Adorno hospitalist on-call covering for Dr. Hardwick who has graciously accepted patient for inpatient admission. MDM - Extremity Injury (Lower) Lab Data 09/18/24 15:40 09/18/24 15:40 Labs: Lab Results 09/18/24 Range/Units 15:40 WBC 8.9 (4.5-11.0) X10^3/uL RBC 4.53 (4.0-5.2) X10^6/uL Hgb 14.1 (12.0-16.0) g/dL Hct 41.8 (36-46) % MCV 92.5 (80-100) fL MCH 31.1 (26-34) PG MCHC 33.6 (30-36) % RDW 14.1 (11.6-14.8) % Plt Count 270 (150-400) X10^3/uL Neut % (Auto) 46.1 L (50-75) % Lymph % (Auto) 40.9 H (25-40) % [place] % (Auto) 10.7 (3-14) % Eos % (Auto) 1.7 L (2-4) % Baso % (Auto) 0.6 (0-2) % Neut # (Auto) 4100 (0957-3887) /uL Lymph # (Auto) 3600 (2297-0032) /uL [place] # (Auto) 1000 H (0-900) /uL Eos # (Auto) 200 (0-450) /uL Baso # (Auto) 100 (0-100) /uL PT 12.0 (9.4-12.5) SECONDS INR 1.1 (0.9-1.3) Sodium 136 L (137-145) mmol/L Potassium 3.8 (3.4-5.1) mmol/L Chloride 105 (98-107) mmol/L Carbon Dioxide 24 (22-32) mmol/L BUN 17 (7-17) mg/dL Creatinine 0.92 (0.52-1.04) mg/dL Estimated GFR > 60 (>60) mL/min BUN/Creatinine Ratio 18.5 (6-22) Glucose 107 H (70-99) mg/dL Calcium 10.2 (8.4-10.2) mg/dL Total Bilirubin 0.7 (0.2-1.3) mg/dL AST 55 H (14-36) IU/L ALT 22 (<35) IU/L Alkaline Phosphatase 69 (38-126) U/L Total Protein 7.3 (6.3-8.2) g/dL Albumin 4.6 (3.5-5.0) g/dL Globulin 2.7 (1.7-4.1) g/dL Albumin/Globulin Ratio 1.7 (1.0-2.8) Imaging Data Extremity x-ray #1: Radiologist's Impression: [address] [address] XRay Report Signed Patient: Christine Torres MR#: [id number] : 1940 Acct:[id number] Age/Sex: 84 / F Date of Service: 09/18/24 Loc: ED Accession Number: [id number] Procedure: XR hip w pel LT 2V Ordering Provider: Josias Jose MD PROCEDURE: XR HIP W PEL IF DONE LT 2V INDICATIONS: Fall with hip swelling and pain TECHNIQUE: AP pelvis with lateral view of the left hip. COMPARISON: None. FINDINGS: Bones: Mildly displaced comminuted intertrochanteric fracture of the left proximal femur. Generalized osteopenia. Pelvic bones otherwise appear to be intact. Soft tissues: The visualized bowel gas pattern is normal. No suspicious soft tissue calcifications. IMPRESSION: Mildly displaced comminuted intertrochanteric fracture of the left proximal femur. Chest x-ray: Radiologist's Impression: [address] [address] XRay Report Signed Patient: Christine Torres MR#: [id number] : 1940 Acct:[id number] Age/Sex: 84 / F Date of Service: 09/18/24 Loc: ED Accession Number: [id number] Procedure: XR chest 1V Ordering Provider: Josias Jose MD PROCEDURE: XR CHEST 1V INDICATIONS: preop TECHNIQUE: One view of the chest was acquired. COMPARISON: [facility], CHEST 2 VIEW, 08/12/2016, 10:25. FINDINGS: Surgical changes and devices: None. Lungs and pleura: Lungs are clear. No pleural effusions or pneumothorax. Mediastinum: Mediastinal contours appear normal. Heart size is normal. Bones and chest wall: No suspicious bony lesions. Overlying soft tissues appear unremarkable. IMPRESSION: No acute cardiopulmonary abnormality is seen. Discharge Plan Departure Patient Disposition: Admitted As Inpatient Clinical Impression: Closed intertrochanteric fracture Qualifiers: Encounter type: initial encounter Fracture alignment: displaced Laterality: l eft Qualified Code(s): S72.142A - Displaced intertrochanteric fracture of left femur, initial encounter for closed fracture Admit Date/Time: 09/18/24 18:31 Admit Provider: Chaitanya Adorno
[2024-09-18] MEDS: HYDROMORPHONE 0.5 MG INJ IV (18:46)
--- NOTE | 2024-09-18 19:19 | PC.NURSE ---
This RN gave verbal report to Osmani Villarreal RN for admission. This RN was present for all interaction with this patient and student RN. All student insurance solicitor as been reviewed and agreed upon by this RN.
--- NOTE | 2024-09-18 20:03 | P.HP_ITS ---
History of Present Illness History of Present Illness Date Patient Seen: 09/18/24 Time Patient Seen: 20:03 Chief complaint: L hip pain Narrative: 84-year-old female, normally sees Dr. Myriam Maciel at [facility], who follows her for hyperlipidemia primarily, he was admitted via emergency department after falling and fracturing her left femur Patient was apparently out gardening on this very nice day today and tripped over portion of the sidewalk landing on her left hip. She was unable to get up and walk and or bear weight after that. EMS was summoned and she was transport [facility] Emergency Department In the [facility] Emergency Department she was found to have a fractured intertrochanteric left femur, with mild displacement Patient is very clear this was merely a mechanical fall, that she tripped. There was no syncope, near-syncope, lightheadedness, or dizziness. There were no palpitations, chest pain, shortness of breath, or other cardiovascular symptoms. 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) Surgical History [place] teeth removed (04/28/1950) Anesthesia History of oral surgery (1999) History of squamous cell carcinoma excision (08/2013) History of excision of mass (04/2010) History of ankle surgery (06/2008) History of foot surgery (~1997) History of cataract removal with insertion of prosthetic lens Status post colonoscopy (02/2014) Status post colonoscopy (04/2011) Status post colonoscopy (10/2010) Status post colonoscopy (04/2010) Status post tubal ligation (~1984) Status post cholecystectomy (~1984) Status post breast biopsy Status post dilation and curettage (~1968) Status post dilation and curettage (~1967) History of tonsillectomy (1947) Family History Brother Alcohol abuse Diabetes mellitus Cancer Hypertension High cholesterol Septicemia Brother Alcohol abuse Drug abuse [place] Child Age: 53 High cholesterol Child Age: 50 Seasonal allergies Mother Hypertension High cholesterol Heart disease Breast cancer Sister Age: 75 Atrial fibrillation Father Emphysema of lung Family/Other No problems noted. Social History marital status: number of children: 3 household members: spouse lives independently: Yes caregiver/support person: No housing: house Smoking Status: Never smoker second hand exposure: No alcohol intake: former substance use type: does not use Meds Home Medications and Allergies Home Medications Medication Instructions Recorded Confirmed Type calcium carbonate (Calcium 500) 250 mg PO DAILY ##0 03/07/11 09/18/24 History omega 2-avt-pgr-fish oil 1,000 mg 2 cap PO DAILY ##0 03/07/11 09/18/24 History (120 mg-180 mg) capsule (Fish Oil) cholecalciferol (vitamin D3) 50 2,000 unit PO DAILY 12/15/18 09/18/24 History mcg (2,000 unit) capsule ceramides 1,3,6-II (CeraVe topical 1 applic topical QD-BID PRN Dry 09/04/22 09/18/24 History cream) Skin ciclopirox 8 % topical solution 1 applic topical BEDTIME 09/04/22 09/18/24 History betamethasone dipropionate 0.05 % 1 ea topical PRN PRN Rash 08/18/24 09/18/24 History lotion clindamycin HCl 300 mg capsule 300 mg PO TID Root canal infection 08/18/24 08/18/24 History psyllium husk 3.4 gram/5.8 gram 2 g PO QAM Bowel health 08/18/24 09/18/24 History oral powder (Metamucil Sugar-Free (aspartame)) simvastatin 20 mg tablet See Rx Instructions .Route 08/18/24 09/18/24 Rx .COMPLEX #90 tabs azelastine 137 mcg-fluticasone 50 1 spray intranasal QAM 09/18/24 09/18/24 History mcg/spray nasal spray Allergies Allergy/AdvReac Type Severity Reaction Status Date / Time Wnvqdlc-AHX-MlK Reductase Allergy Severe Rash Verified 08/18/24 14:47 Inhibitor egg [EGG] Allergy Unknown Gastrointestinal Verified 08/18/24 14:47 Upset Iodinated Contrast Media AdvReac Severe Verified 08/18/24 14:47 [IODINATED CONTRAST MEDIA - INJECTABLE IV DYE] IODINE - PAINFUL AT INJECTION SITE erythromycin base AdvReac Mild GI UPSET Verified 08/18/24 14:47 [ERYTHROMYCIN BASE] oxycodone [OXYCODONE] AdvReac Mild GI UPSET Verified 08/18/24 14:47 diphtheria,pertussis AdvReac Verified 08/18/24 14:47 (acell),matthew Review of Systems Review of Systems ROS: Yes All systems reviewed with the patient and are negative except as otherwise documented Exam Vital Signs (past 8 hours): - 09/18/24 15:45 09/18/24 15:53 09/18/24 16:00 Temperature 98.5 F Pulse Rate 93 H 91 H Pulse Rate [Left Dorsalis Pedis] 68 Respiratory Rate 22 17 Blood Pressure 207/101 H Pulse Oximetry 98 97 Oxygen Delivery Method Room Air Oxygen Flow Rate 09/18/24 16:00 09/18/24 16:30 09/18/24 16:30 Temperature Pulse Rate 89 Pulse Rate [Left Dorsalis Pedis] Respiratory Rate 17 Blood Pressure 203/103 H 190/94 H Pulse Oximetry 95 Oxygen Delivery Method Oxygen Flow Rate 09/18/24 17:00 09/18/24 17:00 09/18/24 17:30 Temperature Pulse Rate 77 83 Pulse Rate [Left Dorsalis Pedis] Respiratory Rate 23 22 Blood Pressure 152/77 H Pulse Oximetry 98 96 Oxygen Delivery Method Oxygen Flow Rate 09/18/24 17:36 09/18/24 17:36 09/18/24 18:00 Temperature Pulse Rate 80 Pulse Rate [Left Dorsalis Pedis] Respiratory Rate 18 Blood Pressure 184/87 H 177/86 H Pulse Oximetry 96 Oxygen Delivery Method Nasal Cannula Oxygen Flow Rate 2 09/18/24 18:00 09/18/24 18:30 09/18/24 18:30 Temperature Pulse Rate 86 87 Pulse Rate [Left Dorsalis Pedis] Respiratory Rate 19 23 Blood Pressure 185/89 H Pulse Oximetry 97 98 Oxygen Delivery Method Nasal Cannula Nasal Cannula Oxygen Flow Rate 2 2 09/18/24 19:00 09/18/24 19:01 09/18/24 19:01 Temperature Pulse Rate 93 H 92 H Pulse Rate [Left Dorsalis Pedis] Respiratory Rate Blood Pressure 170/74 H Pulse Oximetry 97 97 Oxygen Delivery Method Nasal Cannula Nasal Cannula Oxygen Flow Rate 2 2 Oxygen Delivery Method Nasal Cannula Oxygen Flow Rate 2 Narrative Exam Narrative: Elderly female lying in hospital bed HEENT-unremarkable, normocephalic atraumatic Neck-no lymphadenopathy no bruits Lungs-clear anteriorly and posteriorly no wheezes no crackles good breath sounds Heart-regular rate and rhythm, grade 3/6 systolic murmur across the entire precordium without particular radiation, no rub, or gallop. normal S1-S2 Abdomen-positive bowel tones, soft, nontender, nondistended, no hepatosplenomegaly, no masses palpable Neuro-normal to screening exam, gait not tested Extremities-no cyanosis clubbing or edema Objective Labs 09/18/24 15:40 09/18/24 15:40 Labs: Laboratory Results - last 24 hr 09/18/24 15:40 WBC 8.9 RBC 4.53 Hgb 14.1 Hct 41.8 MCV 92.5 MCH 31.1 MCHC 33.6 RDW 14.1 Plt Count 270 Neut % (Auto) 46.1 L Lymph % (Auto) 40.9 H [place] % (Auto) 10.7 Eos % (Auto) 1.7 L Baso % (Auto) 0.6 Neut # (Auto) 4100 Lymph # (Auto) 3600 [place] # (Auto) 1000 H Eos # (Auto) 200 Baso # (Auto) 100 PT 12.0 INR 1.1 Sodium 136 L Potassium 3.8 Chloride 105 Carbon Dioxide 24 BUN 17 Creatinine 0.92 Estimated GFR > 60 BUN/Creatinine Ratio 18.5 Glucose 107 H Calcium 10.2 Total Bilirubin 0.7 AST 55 H ALT 22 Alkaline Phosphatase 69 Total Protein 7.3 Albumin 4.6 Globulin 2.7 Albumin/Globulin Ratio 1.7 Assessment & Plan Assessment & Plan narrative: 1. Left intertrochanteric femur fracture-surgical repair as per Orthopedic surgery. Patient is low to average risk for surgery with her only medical problem being hyperlipidemia. Lab work EKG and chest x-ray unremarkable in the emergency department. She is a bit hypertensive currently, likely secondary to the pain. She was okay for surgery and I will keep her NPO after midnight in preparation for surgery. Consider evaluation for osteoporosis as an outpatient. I do not see any recent DEXA scans. Given her fall and fracture patient, would likely benefit from treatment for osteoporosis no matter the findings on bone density testing. Will defer to her PCP. 2. Cardiac-patient with what appears to be a new murmur. Does not sound like a critical aortic stenosis murmur and patient is asymptomatic from a cardiac standpoint.. Given that she is okay for surgery, in my opinion. Consider echocardiography for further evaluation. This could likely be done as an outpatient as well. Patient's blood pressure minimally elevated, likely secondary to pain more than anything else. Will work hard to try and better control pain and spasm etcetera. 3. Hyperlipidemia-patient normally takes simvastatin which is not on formulary at [facility]. She has had reaction to other statin drugs, so will hold off on any statin therapy while she is in the hospital. 4. VTE prophylaxis-SCDs for now. No chemo prophylaxis until after surgery. 5. Code status-patient appropriate for full code in the event of a sudden cardiac or respiratory arrest which is not anticipated. Patient verifies that she would wish to be resuscitated in the event if such a disastrous occurrence happens. Time-Based Coding :: [TOTAL MINUTES] spent with patient and on the chart (including review of chart, obtaining history, exam, reviewing outside data, placing orders, documenting exam and treatment plan, and counseling patient) on [DATE]. PROFEE Sand Molder Document charge(s): Yes Charge Codes Initial inpatient/observation care: [id number]
[2024-09-18] MEDS: DEXTROSE 5%-0.9% NS 1,000 ML 100 ML IV (20:31)
[2024-09-18] MEDS: ONDANSETRON 4 MG/2 ML INJ IV (20:37)
[2024-09-18] MEDS: hydrOXYzine HCL 25 MG TABLET PO (21:05)
[2024-09-19] VITALS (17 sets, daily range): BP systolic 113–162; BP diastolic 57–110; PULSE 76–121; RESP 14–27; TEMP 35.8–37.2; O2SAT 90–99; BMI 20.8
--- NOTE | 2024-09-19 | DI.RAD.S_ITS ---
PROCEDURE: XR HIP W PEL IF DONE LT 2V INDICATIONS: LT HIP IMNAILLING TECHNIQUE: 2 views of the hip were acquired. COMPARISON: [facility], CR, XR HIP W PEL LT 2V, 09/18/2024, 16:02. FINDINGS AND IMPRESSION: Intramedullary farshad with interlocking screw fixation of the left proximal femur fracture. Fluoroscopic images were taken. Please see operative note full details. Dictated by: Jasen Quan M.D. on 09/19/2024 at 20:33 Approved by: Jasen Quan M.D. on 09/19/2024 at 20:33
[2024-09-19 02:15] LABS: Appearance Urine UA CLEAR; Bilirubin Urine UA NEGATIVE (NEGATIVE); Color Urine UA YELLOW; Glucose Urine UA TRACE g/dL (Negative); Ketones Urine UA TRACE (NEGATIVE); Leukocyte Esterase Urine UA NEGATIVE (NEGATIVE); Nitrite Urine UA NEGATIVE (Negative); Occult Blood Urine UA TRACE-INTACT (Negative); Protein Urine UA NEGATIVE (Negative); Specific Gravity Urine UA 1.015 (1.000-1.035); Urobilinogen Urine UA 0.2 E.U./dL (0.2)
[2024-09-19 02:18] LABS: Urine Volume 10mL (spun)
[2024-09-19 02:21] LABS: Amorphous Sediment Urine 3+; Granular Casts Urine 1-5/LPF; Hyaline Casts Urine 1-5/LPF; RBC Urine 0-1/HPF (0-5/HPF); Squamous Epithelial Cell Urine 0-1 /HPF (0-5/HPF); WBC Urine None Seen (0-5/HPF)
[2024-09-19 02:22] LABS: Mucus Urine 1+ (Negative)
[2024-09-19 02:23] LABS: Bacteria Urine Few (2-10); Culture Indicated Urine Cult Not Indicated
[2024-09-19] MEDS: HYDROMORPHONE 1 MG INJ IV ×2 (04:32→11:16)
[2024-09-19] MEDS: diazePAM 10 MG/2 ML SYRINGE 2 MG IV (06:33)
[2024-09-19] MEDS: DEXTROSE 5%-0.9% NS 1,000 ML 100 ML IV (06:38)
--- NOTE | 2024-09-19 08:30 | PM.CN.IH.1 ---
History of Present Illness Consult details Chief complaint: L hip pain Narrative: CHIEF COMPLAINT - Minimally displaced left intertrochanteric femur fracture HISTORY OF PRESENT ILLNESS Christine Torres is an 84-year-old female who presented after a mechanical trip and fall yesterday while gardening at her home. She sustained a minimally displaced left intertrochanteric femur fracture. The pain is worsened by any movement and is partially alleviated by rest. The pain has been present since the time of injury and does not radiate. PERTINENT PAST MEDICAL HISTORY - Prior surgeries: plates and screws in the ankle for a trimalleolar fracture, and knee surgery - Osteoporosis (suspected, no previous bone density scan reported) SOCIAL HISTORY - Lives alone with a dog in town - Independent in activities of daily living, including driving and shopping - Does not use ambulatory aids like a walker or cane - Family lives nearby PHYSICAL EXAM - Constitutional: Mentally appropriate, conversant, and not in acute distress - Musculoskeletal: No open wounds on the left lower extremity; leg held in an externally rotated position; intact plantar flexion and dorsiflexion of the hallux and ankle; palpable dorsalis pedis and posterior tibial pulses; some old healed incisions from prior surgery around the ankle ASSESSMENT 84-year-old female with a minimally displaced left intertrochanteric femur fracture. PLAN - Surgery is planned for today, 2024-09-19, to perform an intertrochanteric nail fixation of the left femur. - The risks and benefits of surgery were discussed with the patient at length. Understanding their options, they wish to proceed with surgery. All of their questions were answered. - Specific risks discussed include: - Medical complications - Need for additional surgery - Damage to surrounding structures - Infection - Postoperative plan: - Full weight-bearing as tolerated with the use of a walker - Pain management with Tylenol, anti-inflammatories (ibuprofen, Aleve, or prescription options like Meloxicam), and icing - Monitoring for swelling and bruising, which is expected - Possible temporary stay in a nursing facility for rehabilitation before returning home, depending on postoperative recovery and support at home - Consideration for osteoporosis management with primary care to prevent future fractures - Referral to [facility] Falls Prevention Program to reduce the risk of future falls - Follow-up with physical therapy and social work for discharge planning and home safety evaluation. Meds Home Medications and Allergies Home Medications Medication Instructions Recorded Confirmed Type calcium carbonate (Calcium 500) 250 mg PO DAILY ##0 03/07/11 09/18/24 History omega 9-riy-prr-fish oil 1,000 mg 2 cap PO DAILY ##0 03/07/11 09/18/24 History (120 mg-180 mg) capsule (Fish Oil) cholecalciferol (vitamin D3) 50 2,000 unit PO DAILY 12/15/18 09/18/24 History mcg (2,000 unit) capsule ceramides 1,3,6-II (CeraVe topical 1 applic topical QD-BID PRN Dry 09/04/22 09/18/24 History cream) Skin ciclopirox 8 % topical solution 1 applic topical BEDTIME 09/04/22 09/18/24 History betamethasone dipropionate 0.05 % 1 ea topical PRN PRN Rash 08/18/24 09/18/24 History lotion psyllium husk 3.4 gram/5.8 gram 2 g PO QAM Bowel health 08/18/24 09/18/24 History oral powder (Metamucil Sugar-Free (aspartame)) simvastatin 20 mg tablet See Rx Instructions .Route 08/18/24 09/18/24 Rx .COMPLEX #90 tabs azelastine 137 mcg-fluticasone 50 1 spray intranasal QAM 09/18/24 09/18/24 History mcg/spray nasal spray Allergies Allergy/AdvReac Type Severity Reaction Status Date / Time Oyowuiv-ISY-JqL Reductase Allergy Severe Rash Verified 09/19/24 08:18 Inhibitor egg [EGG] Allergy Unknown Gastrointestinal Verified 09/19/24 08:18 Upset Iodinated Contrast Media AdvReac Severe Verified 09/19/24 08:18 [IODINATED CONTRAST MEDIA - INJECTABLE IV DYE] IODINE - PAINFUL AT INJECTION SITE erythromycin base AdvReac Mild GI UPSET Verified 09/19/24 08:18 [ERYTHROMYCIN BASE] oxycodone [OXYCODONE] AdvReac Mild GI UPSET Verified 09/19/24 08:18 diphtheria,pertussis AdvReac Verified 09/19/24 08:18 (acell),tetanu Exam Vital Signs (past 8 hours): - 09/19/24 04:33 Temperature 96.4 F L Pulse Rate 80 Respiratory Rate 19 Blood Pressure 159/92 H Pulse Oximetry 99 Oxygen Flow Rate 1 Oxygen Delivery Method Nasal Cannula Oxygen Flow Rate 1 Objective Labs 09/18/24 15:40 09/18/24 15:40 Labs: Laboratory Results - last 24 hr 09/18/24 09/19/24 15:40 02:00 WBC 8.9 RBC 4.53 Hgb 14.1 Hct 41.8 MCV 92.5 MCH 31.1 MCHC 33.6 RDW 14.1 Plt Count 270 Neut % (Auto) 46.1 L Lymph % (Auto) 40.9 H [place] % (Auto) 10.7 Eos % (Auto) 1.7 L Baso % (Auto) 0.6 Neut # (Auto) 4100 Lymph # (Auto) 3600 [place] # (Auto) 1000 H Eos # (Auto) 200 Baso # (Auto) 100 PT 12.0 INR 1.1 Sodium 136 L Potassium 3.8 Chloride 105 Carbon Dioxide 24 BUN 17 Creatinine 0.92 Estimated GFR > 60 BUN/Creatinine Ratio 18.5 Glucose 107 H Calcium 10.2 Total Bilirubin 0.7 AST 55 H ALT 22 Alkaline Phosphatase 69 Total Protein 7.3 Albumin 4.6 Globulin 2.7 Albumin/Globulin Ratio 1.7 Urine Color Yellow Urine Appearance Clear Urine pH 6.0 Ur Specific [place] 1.015 Urine Protein Negative Urine Glucose (UA) Trace H Urine Ketones Trace H Urine Occult Blood Trace-intact Urine Nitrate Negative Urine Bilirubin Negative Urine Urobilinogen 0.2 Ur Leukocyte Esterase Negative Urine RBC 0-1/hpf Urine WBC None seen Ur Squamous Epith Cells 0-1 /hpf Amorphous Sediment 3+ Urine Bacteria Few (2-10) H Hyaline Casts 1-5/lpf Granular Casts 1-5/lpf Urine Mucus 1+ H Ur Culture Indicated? 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) Surgical History [place] teeth removed (04/28/1950) Anesthesia History of oral surgery (1999) History of squamous cell carcinoma excision (08/2013) History of excision of mass (04/2010) History of ankle surgery (06/2008) History of foot surgery (~1997) History of cataract removal with insertion of prosthetic lens Status post colonoscopy (02/2014) Status post colonoscopy (04/2011) Status post colonoscopy (10/2010) Status post colonoscopy (04/2010) Status post tubal ligation (~1984) Status post cholecystectomy (~1984) Status post breast biopsy Status post dilation and curettage (~1968) Status post dilation and curettage (~1967) History of tonsillectomy (1946) Family History Brother Alcohol abuse Diabetes mellitus Cancer Hypertension High cholesterol Septicemia Brother Alcohol abuse Drug abuse [place] Child Age: 53 High cholesterol Child Age: 50 Seasonal allergies Mother Hypertension High cholesterol Heart disease Breast cancer Sister Age: 75 Atrial fibrillation Father Emphysema of lung Family/Other No problems noted. Social History marital status: number of children: 3 household members: spouse lives independently: Yes caregiver/support person: No housing: house Tobacco & Substance Use Smoking Status: Never smoker second hand exposure: No alcohol intake: former substance use type: does not use Assessment & Plan Assessment and plan (1) Closed intertrochanteric fracture: Qualifiers: Encounter type: initial encounter Fracture alignment: displaced Laterality: left Qualified Code(s): S72.142A - Displaced intertrochanteric fracture of left femur, initial encounter for closed fracture Status: Acute Time-Based Coding :: [TOTAL MINUTES] spent with patient and on the chart (including review of chart, obtaining history, exam, reviewing outside data, placing orders, documenting exam and treatment plan, and counseling patient) on [DATE]. PROFEE Charge Codes Inpatient or Observation consultation: [id number]
[2024-09-19] MEDS: LACTATED RINGERS 1,000 ML 42 ML IV (08:53)
[2024-09-19] MEDS: CEFAZOLIN 2 GM/100 ML PREMIX 100 ML IV (09:16)
[2024-09-19] MEDS: TRANEXAMIC ACID 1,000 MG VIAL 1000 MG INJ ×2 (09:20→10:35)
[2024-09-19] MEDS: ACETAMINOPHEN IV 1,000 MG/100 ML VIAL 400 MG IV (09:30)
--- NOTE | 2024-09-19 09:44 | SUR.OPER ---
Supine on padded [place] table with bilateral legs secured in padded positioning boots and suspended in positioning spars, operative leg in traction per surgeon. Head on one pillow. Arm on non-operative side secured on padded armboard <90 degrees abduction. Arm on operative side padded and resting across chest then secured with tape over sheet. Padded perineal post in place per surgeon.
--- NOTE | 2024-09-19 09:48 | P.PN_ITS ---
Subjective Subjective Date Patient Seen: 09/19/24 Time Patient Seen: 09:48 Interval history: Patient off to surgery to repair her left hip No complications overnight. Blood pressure remained borderline elevated. Exam Vital Signs (past 8 hours): - 09/19/24 04:33 09/19/24 08:50 Temperature 96.4 F L 97.9 F Pulse Rate 80 85 Respiratory Rate 19 16 Blood Pressure 159/92 H 162/78 H Pulse Oximetry 99 95 Oxygen Delivery Method Room Air Oxygen Flow Rate 1 Oxygen Delivery Method Room Air Oxygen Flow Rate 1 Objective Labs 09/20/24 06:20 09/20/24 06:20 Labs: Laboratory Results - last 24 hr 09/18/24 09/19/24 15:40 02:00 WBC 8.9 RBC 4.53 Hgb 14.1 Hct 41.8 MCV 92.5 MCH 31.1 MCHC 33.6 RDW 14.1 Plt Count 270 Neut % (Auto) 46.1 L Lymph % (Auto) 40.9 H [place] % (Auto) 10.7 Eos % (Auto) 1.7 L Baso % (Auto) 0.6 Neut # (Auto) 4100 Lymph # (Auto) 3600 [place] # (Auto) 1000 H Eos # (Auto) 200 Baso # (Auto) 100 PT 12.0 INR 1.1 Sodium 136 L Potassium 3.8 Chloride 105 Carbon Dioxide 24 BUN 17 Creatinine 0.92 Estimated GFR > 60 BUN/Creatinine Ratio 18.5 Glucose 107 H Calcium 10.2 Total Bilirubin 0.7 AST 55 H ALT 22 Alkaline Phosphatase 69 Total Protein 7.3 Albumin 4.6 Globulin 2.7 Albumin/Globulin Ratio 1.7 Urine Color Yellow Urine Appearance Clear Urine pH 6.0 Ur Specific [place] 1.015 Urine Protein Negative Urine Glucose (UA) Trace H Urine Ketones Trace H Urine Occult Blood Trace-intact Urine Nitrate Negative Urine Bilirubin Negative Urine Urobilinogen 0.2 Ur Leukocyte Esterase Negative Urine RBC 0-1/hpf Urine WBC None seen Ur Squamous Epith Cells 0-1 /hpf Amorphous Sediment 3+ Urine Bacteria Few (2-10) H Hyaline Casts 1-5/lpf Granular Casts 1-5/lpf Urine Mucus 1+ H Ur Culture Indicated? 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) Surgical History [place] teeth removed (04/28/1950) Anesthesia History of oral surgery (1999) History of squamous cell carcinoma excision (08/2013) History of excision of mass (04/2010) History of ankle surgery (06/2008) History of foot surgery (~1997) History of cataract removal with insertion of prosthetic lens Status post colonoscopy (02/2014) Status post colonoscopy (04/2011) Status post colonoscopy (10/2010) Status post colonoscopy (04/2010) Status post tubal ligation (~1984) Status post cholecystectomy (~1984) Status post breast biopsy Status post dilation and curettage (~1968) Status post dilation and curettage (~1967) History of tonsillectomy (1946) Family History Brother Alcohol abuse Diabetes mellitus Cancer Hypertension High cholesterol Septicemia Brother Alcohol abuse Drug abuse [place] Child Age: 53 High cholesterol Child Age: 50 Seasonal allergies Mother Hypertension High cholesterol Heart disease Breast cancer Sister Age: 75 Atrial fibrillation Father Emphysema of lung Family/Other No problems noted. Social History marital status: number of children: 3 household members: spouse lives independently: Yes caregiver/support person: No housing: house Smoking Status: Never smoker second hand exposure: No alcohol intake: former substance use type: does not use Assessment & Plan Assessment & Plan narrative: 1. Intertrochanteric left hip fracture-surgical repair as per Orthopedic surgery. Follow-up postop care as per Orthopedic surgery including physical therapy and VTE prophylaxis 2. Hypertension-monitor numbers today after surgery. If need be will institute antihypertensive therapy 3. Cardiac murmur-defer evaluation to outpatient, does not sound like an aortic murmur likely not at all urgent in the setting of no cardiovascular symptoms and no prior history of cardiac disease 4. Osteoporosis-defer management to PCP well after she has healed from this surgery 5. Disposition-unclear whether patient will be able to return home with increased level of assistance at home or will require longterm placement for short time. That should be able to be determined over the next couple of days, as she enters the immediate postop recovery period, Etcetera. Time-Based Coding :: [TOTAL MINUTES] spent with patient and on the chart (including review of chart, obtaining history, exam, reviewing outside data, placing orders, documenting exam and treatment plan, and counseling patient) on [DATE]. PROFEE Senior Managing Director Document charge(s): Yes Charge Codes Subsequent inpatient/observation care: [id number]
[2024-09-19] MEDS: BUPIVACAINE LIPOSOME 266 MG/20 ML VIAL INJ (10:19)
[2024-09-19] MEDS: BUPIVACAINE 0.25% W/ EPI 30 ML VIAL 60 ML INJ (10:20)
--- NOTE | 2024-09-19 10:56 | P.OP_ITS ---
Operative Date/Time/Diagnoses Date of procedure: 09/19/24 Time of procedure: 09:30 Pre-op diagnosis: Intertrochanteric left hip fracture Post-op diagnosis: same Procedure & Clinicians Procedure: Intramedullary nailing of intertrochanteric left hip fracture Same procedure as scheduled: Yes Surgeon: Carlo Aguayo Click Yes if Unassisted: Yes Anesthesia Type: General Operative Notes Findings: Intertrochanteric left femur fracture Estimated Blood Loss (mL): 300 Procedure in detail: Left Hip Intramedullary Nailing for Intertrochanteric Femur Fracture Implants: * [employer]hew 11.5 mm x 20 cm InterTAN nail * 85 mm proximal lag screw * 80 mm proximal compression screw * 25 mm distal interlocking screw Procedure summary: This 82-year-old female patient has hip fracture was minimally displaced on her preoperative injury films. Intraoperative evaluation prior to the procedure start demonstrated that the greater trochanteric fragment was a free piece and the fracture could be both over distracted and over compressed. I therefore placed very slight traction on it for the beginning of the case in order to achieve a reduction. Prior to the beginning of the surgery the reduction was appropriate on both AP and lateral views. Upon introduction of the opening Reamer for the proximal femur the opening Reamer widely displaced the greater trochanteric fragment. This necessitated adjustment of the traction through the fracture table in order to achieve an appropriate reduction. I also manually compressed the fracture with manual pressure laterally to reduce the greater trochanteric fragment back down. After initially attempting to pass an 11.5 mm nail I found that this got stuck in the diaphysis so I introduced a guidewire which went down to the distal femur and reamed up to 13 mm. This then allowed the intramedullary nail to pass. Once I got to the conclusion of the procedure in place the distal interlock it was only a 25 mm screw, which is approximately 10 mm less than I typically place during the procedure for a woman of this age. I therefore took this is an indication that she had relatively narrow femoral canals and even though she is osteoporotic and has capacious canals they have a narrow diameter which is what necessitated the intramedullary reaming. Because of the additional time for additional reduction maneuvers following introduction of the opening Reamer and the intramedullary reaming, procedure length was greater than average and blood loss was 300 mL. Procedure in detail: This patient presented to the hospital for hip pain and was found to have an intertrochanteric femur fracture on radiographic evaluation in the emergency department. ?As the on-call orthopedic surgeon I was consulted for management. ?The patient was admitted to the medicine service here at [facility] and received a preoperative evaluation to ensure that no optimization measures would be necessary to minimize the patient's risk for complications around surgery prior to proceeding with intramedullary nailing. ?After assessment from the agricultural extension educator as well as anesthesia the patient was deemed optimized for surgery. ?Risks and benefits were discussed. ?All questions were answered. ?Informed consent was obtained. ?The operative site on the left extremity was marked. ?The patient was taken to the operating room and transferred onto a [place] table. ?All bony prominences were padded. ?A time-out procedure was performed verifying the correct patient identity, operative site, medical comorbidities, ASA score, and medication allergies. ?Injury radiographs displaying the injured hip were displayed in the room. ?Ancef and tranexamic acid were administered. Prior to incision fluoroscopy was utilized to manipulate the fracture into an appropriate reduction. ?This involved traction and 0 degrees of internal rotation. ?Once satisfied with the radiographic appearance of the fracture on an AP hip radiograph as well as a lateral hip radiograph the patient was prepped and draped in the usual sterile fashion. ?I mapped out the start points fluoroscopically with the guidewire. ?I obtained a start point at the tip of the greater trochanter on the AP view aiming towards the lesser trochanter and centered in the greater trochanter aiming down the femoral shaft on the lateral view. ?The guidewire was inserted and an opening Reamer was utilized to gain access to the canal. Upon introducing the opening Reamer this widely displaced the fracture so further reduction maneuvers were utilized to restore the reduction which we had achieved through the fracture table prior to the start of the procedure. ?The InterTAN nail was introduced. I could not pass it in the canal and it got stuck in the diaphysis so I removed it and inserted a guidewire and reamed at 10, 11.5, 12, 12.5, 13 mm. This opened up the canal and achieved significant cortical chatter. I then passed the nail down to an appropriate depth where the interlocking screws would aim towards the center of the femur on an AP view. ?On a lateral fluoroscopic view the rotation of the C-arm was adjusted until the nail was centered in the femoral head. ?The jig was then rotated so that it would line with the nail and the femoral head in order to set the rotation of the nail. ?A guidewire was passed and evaluated to ensure appropriate center center position on both the AP and lateral fluoroscopic images to minimize tip apex distance. ?Once satisfied with the guidewire position I used the drills for the lag and compression screws for the InterTAN nail and measured the length of those. ?The compression screw utilized was 5 mm shorter than the lag screw. ?These were both inserted and correct positioning was verified fluoroscopically. ?The distal interlocking screw was inserted through the jig. ?The threaded capsular was removed proximally and final fluoroscopic images were obtained evaluating fracture reduction and implant positioning on AP and lateral views throughout the entire construct. ?I was satisfied with these radiographs. The wound was copiously irrigated. ?Local anesthesia was infiltrated throughout the wound. ?The wound was closed and a soft dressing was applied. ?The patient was transferred off of the [place] table and brought to the PACU. Postoperative plan: * Weightbearing as tolerated * Aspirin 81 mg twice per day for DVT prophylaxis * Recommend multimodal pain regimen * Physical therapy to evaluate patient mobility, home set up, and availability of assistance at home to determine appropriateness for discharge home versus subacute rehab * Follow up in 2 weeks at [facility] with one of the physician assistants Complications: none Post-operative Condition: stable Disposition: PACU
[2024-09-19] MEDS: hydrOXYzine 50 MG/ML INJ 25 MG IM (11:16)
--- NOTE | 2024-09-19 12:18 | CM.DANOTE ---
B DCP Assessment note pt is an 84yo F admitted after GLF resulted in left femur fx. PCP Myriam Maciel Payer [facility] and self pay WARD ASSISTANT reviewed EMR. per chart review, pt lives with spouse in [place], local sons support as needed. indep/drives/no DME at baseline. OR with Dr. Aguayo today. no known hx of HH or SNF. pt off floor in OR when this WARD ASSISTANT attempted ax. DCP pending PT/OT safety recs/pt preference. P: pending post op recs/preferences. if SNF, auth needed. if home, r/o HH? CM team will continue to follow closely VILLA Palacios Discharge Planning/Care Management CM Discharge Assessment Start: 09/18/24 18:33 Freq: Status: Active Protocol: Document 09/19/24 12:16 SL (Rec: 09/19/24 12:18 SL Desktop) Discharge Planning Assessment Assigned Senior Software Systems Engineer VILLA Daigle DPOA/Assigned Designee Name kwadwo Henriquez Contact Information [phone] Advance Directives? Yes Advance Directives on File Yes History Provided By Patient Prior Living Arrangements House Household Members spouse Type of transporation used prior to Drives own vehicle admit Independent with ADL's Yes Is patient alert and oriented? Yes Discharge Plan Home Referrals Initiated None needed Review Status In Process Please Provide Date Initial DC 09/19/24 Assessment Was Performed Next Review Type Continued Stay Review
[2024-09-19] MEDS: ACETAMINOPHEN 325 MG TABLET 650 MG PO (13:54)
[2024-09-19] MEDS: OXYCODONE IR 5 MG TABLET PO ×2 (14:36→20:30)
[2024-09-19] MEDS: CEFAZOLIN VIAL 1 GM in SODIUM CHLORIDE 0.9% 100 ML IV (16:59)
[2024-09-19] MEDS: LACTATED RINGERS 1,000 ML 100 ML IV (18:46)
[2024-09-19] MEDS: DOCUSATE 100 MG CAPSULE PO (20:30)
[2024-09-19] MEDS: SENNOSIDES 8.6 MG TABLET 17.2 MG PO (20:30)
[2024-09-19] MEDS: ASPIRIN EC 81 MG TABLET PO (22:04)
[2024-09-20] MEDS: CEFAZOLIN VIAL 1 GM in SODIUM CHLORIDE 0.9% 100 ML IV (00:39)
[2024-09-20 06:00] VITALS: BP 136/86; PULSE 86; RESP 19; TEMP 37.2; O2SAT 96
[2024-09-20 06:37] LABS: Add Manual Diff / Slide Review NO; Basophils Absolute Auto 0 /uL (0-100); Basophils Percent Auto 0.2 % (0-2); Eosinophils Absolute Auto 0 /uL (0-450); Hematocrit 30.3 % (36-46); Hemoglobin 10.2 g/dL (12.0-16.0); Lymphocytes Absolute Auto 1300 /uL (1100-4500); Lymphocytes Percent Auto 9.1 % (25-40); Mean Corpuscular HGB Conc 33.8 % (30-36); Mean Corpuscular Hemoglobin 31.2 PG (26-34); Mean Corpuscular Volume 92.4 fL (80-100); Monocytes Absolute Auto 1400 /uL (0-900); Monocytes Percent Auto 10.1 % (3-14); Neutrophils Absolute Auto 11400 /uL (1500-7000); Neutrophils Percent Auto 80.6 % (50-75); Platelet Count 183 X10^3/uL (150-400); Red Blood Cell Count 3.28 X10^6/uL (4.0-5.2); White Blood Cell Count 14.1 X10^3/uL (4.5-11.0)
[2024-09-20] MEDS: ACETAMINOPHEN 325 MG TABLET 650 MG PO ×3 (06:38→20:50)
[2024-09-20] MEDS: IBUPROFEN 400 MG TABLET 800 MG PO ×2 (06:39→13:43)
[2024-09-20 06:48] LABS: BUN Creatinine Ratio 15.9 (6-22); Blood Urea Nitrogen 13 mg/dL (7-17); Calcium 9.2 mg/dL (8.4-10.2); Carbon Dioxide 26 mmol/L (22-32); Chloride 105 mmol/L (98-107); Estimated Glomerular Filt Rate > 60 mL/min (>60); Glucose 131 mg/dL (70-99); HEMOLYSIS < 15 (0-50); Potassium 4.4 mmol/L (3.4-5.1); Sodium 136 mmol/L (137-145)
--- NOTE | 2024-09-20 06:54 | PC.NURSE ---
Jason removed at 06:30.
--- NOTE | 2024-09-20 08:47 | PM.PN.IH.1 ---
Subjective Subjective Date Patient Seen: 09/20/24 Time Patient Seen: 08:47 Interval history: Successful surgery yesterday with intramedullary nail. Surgery took a bit longer with a bit more blood loss than anticipated due to some anatomical concerns (see op note for details) Labs this morning show the expected anemia. Remainder of labs unremarkable Has used some oxycodone orally for pain management, but says pain is actually very minimal maybe a 4 on the 0-10 scale Exam Vital Signs (past 8 hours): - 09/20/24 06:00 Temperature 98.9 F Pulse Rate 86 Respiratory Rate 19 Blood Pressure 136/86 Pulse Oximetry 96 Oxygen Flow Rate 0 Fraction of Inspired Oxygen 32 SaO2/FiO2 Ratio 306 Oxygen Delivery Method Nasal Cannula Oxygen Flow Rate 0 Objective Labs 09/20/24 06:20 09/20/24 06:20 Labs: Laboratory Results - last 24 hr 09/20/24 06:20 WBC 14.1 H D RBC 3.28 L Hgb 10.2 L Hct 30.3 L MCV 92.4 MCH 31.2 MCHC 33.8 RDW 14.0 Plt Count 183 Neut % (Auto) 80.6 H D Lymph % (Auto) 9.1 L D [place] % (Auto) 10.1 Eos % (Auto) 0.0 L Baso % (Auto) 0.2 Neut # (Auto) 37102 H Lymph # (Auto) 1300 [place] # (Auto) 1400 H Eos # (Auto) 0 Baso # (Auto) 0 Sodium 136 L Potassium 4.4 Chloride 105 Carbon Dioxide 26 BUN 13 Creatinine 0.82 Estimated GFR > 60 BUN/Creatinine Ratio 15.9 Glucose 131 H Calcium 9.2 PFSH Medical History Carpal tunnel syndrome (03/07/11) Abnormal mammogram (04/28/69) Chronic cough (1999) Asthma Hayfever (194) Shoulder pain (2002) Osteopenia (1999) Ankle fracture (2008) Ankle pain (2008) Plantar warts (1955) Eczema (1941) Measles (1953) Chicken pox (1946) Anemia (1970) Urinary incontinence (2012) Thyroiditis (1989) Premature ventricular contractions (2011) Hyperlipidemia Colorectal cancer (2010) 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) Surgical History [place] teeth removed (04/28/1950) Anesthesia History of oral surgery (1999) History of squamous cell carcinoma excision (08/2013) History of excision of mass (04/2010) History of ankle surgery (06/2008) History of foot surgery (~1997) History of cataract removal with insertion of prosthetic lens Status post colonoscopy (02/2014) Status post colonoscopy (04/2011) Status post colonoscopy (10/2010) Status post colonoscopy (04/2010) Status post tubal ligation (~1984) Status post cholecystectomy (~1984) Status post breast biopsy Status post dilation and curettage (~1968) Status post dilation and curettage (~1967) History of tonsillectomy (1946) Family History Brother Alcohol abuse Diabetes mellitus Cancer Hypertension High cholesterol Septicemia Brother Alcohol abuse Drug abuse [place] Child Age: 53 High cholesterol Child Age: 50 Seasonal allergies Mother Hypertension High cholesterol Heart disease Breast cancer Sister Age: 75 Atrial fibrillation Father Emphysema of lung Family/Other No problems noted. Social History marital status: number of children: 3 household members: spouse lives independently: Yes caregiver/support person: No housing: house Smoking Status: Never smoker second hand exposure: No alcohol intake: former substance use type: does not use Assessment & Plan Assessment & Plan narrative: 1. Postop day 1 status post repair left hip fracture with intramedullary nail-skilled therapies has been consulted. Continue current pain management. Continue to monitor for bleeding and wound issues. 2. Acute blood loss anemia-numbers are acceptable. No need for transfusion. Will hold off on any iron replacement therapy given the ongoing use of opiate narcotics combined with her relative inactivity over concern about constipation etcetera. Could consider outpatient iron replacement therapy to encouraged more rapid correction of anemia. Plan to rechecked CBC tomorrow and if stable will not need additional labs in my opinion. 3. Hypertension-blood pressure much better controlled postop. Continue to monitor for now 4. Disposition-will see how she was does with skilled therapies which will help determine whether or not she will be able to return home with the additional assistance or require senior living placement Time-Based Coding :: [TOTAL MINUTES] spent with patient and on the chart (including review of chart, obtaining history, exam, reviewing outside data, placing orders, documenting exam and treatment plan, and counseling patient) on [DATE]. [employer] Operator Document charge(s): Yes Charge Codes Subsequent inpatient/observation care: [id number]
--- NOTE | 2024-09-20 08:59 | PT-IP ANOTE ---
PT consult received. PT reviewed chart and checked in on pt. Pt reports 3/10 left leg pain and is wondering about pain medication. Nsg to address. Will hold PT until after pain medication given.
--- NOTE | 2024-09-20 09:00 | P.PN_ITS ---
Subjective Subjective Interval history: PATIENT SUMMARY Christine Torres, who underwent intramedullary nailing of an intertrochanteric femur fracture yesterday, is being evaluated postoperatively to assess her progress. SUBJECTIVE The patient reports engaging in a lot of work today, specifically in relation to planning and organizing tasks at home. She has not been out of bed yet and says her pain is not severe but is worried about what that will be like when standing. The patient is curious about the details of the surgical procedure and expresses interest in understanding the operative report. Additionally, she expresses interest in osteoporosis management and acknowledges her dietary preferences, noting limited meat consumption and the potential need for protein supplementation. PHYSICAL EXAM Constitutional: The patient is alert and oriented, engaging in conversation, and understanding of her postoperative care. Musculoskeletal: Examination of the left lower extremity shows reinforced dressing in place with ecchymosis around the surgical site. Dressing includes four by fours, Tegaderm, and additional paper tape. Intact sciatic nerve function is indicated by her ability to plantarflex and dorsiflex the ankle. A palpable posterior tibial pulse is present. The leg is noted to be slightly more swollen, which is expected to increase. ASSESSMENT - Primary diagnosis: Intertrochanteric left femur fracture post-intramedullary nailing. PLAN - Continue monitoring for signs of healing and complications. - Initiate or continue physical therapy as determined by physical therapists. - Discuss osteoporosis management with Dr. Maciel post-discharge. - Recommend protein supplementation, specifically low in sugar, such as Boost Glucose Control or Ensure Low Glycemic Index. - Schedule follow-up appointments with x-rays at two weeks, six weeks, and twelve weeks post-surgery. - Monitor hemoglobin DISPOSITION The decision on discharge to home or a nursing facility will be made by physical therapists and social workers. The timing is yet to be determined. Exam Vital Signs (past 8 hours): - 09/20/24 06:00 Temperature 98.9 F Pulse Rate 86 Respiratory Rate 19 Blood Pressure 136/86 Pulse Oximetry 96 Oxygen Flow Rate 0 Fraction of Inspired Oxygen 32 SaO2/FiO2 Ratio 306 Oxygen Delivery Method Nasal Cannula Oxygen Flow Rate 0 Objective Labs 09/20/24 06:20 09/20/24 06:20 Labs: Laboratory Results - last 24 hr 09/20/24 06:20 WBC 14.1 H D RBC 3.28 L Hgb 10.2 L Hct 30.3 L MCV 92.4 MCH 31.2 MCHC 33.8 RDW 14.0 Plt Count 183 Neut % (Auto) 80.6 H D Lymph % (Auto) 9.1 L D [place] % (Auto) 10.1 Eos % (Auto) 0.0 L Baso % (Auto) 0.2 Neut # (Auto) 79456 H Lymph # (Auto) 1300 [place] # (Auto) 1400 H Eos # (Auto) 0 Baso # (Auto) 0 Sodium 136 L Potassium 4.4 Chloride 105 Carbon Dioxide 26 BUN 13 Creatinine 0.82 Estimated GFR > 60 BUN/Creatinine Ratio 15.9 Glucose 131 H Calcium 9.2 PFSH Medical History Carpal tunnel syndrome (03/07/11) Abnormal mammogram (04/28/69) Chronic cough (1999) Asthma Hayfever (1941) Shoulder pain (2002) Osteopenia (1999) Ankle fracture (2008) Ankle pain (2008) Plantar warts (1955) Eczema (1941) Measles (1953) Chicken pox (1946) Anemia (1970) Urinary incontinence (2012) Thyroiditis (1989) Premature ventricular contractions (2011) Hyperlipidemia Colorectal cancer (2010) 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) Surgical History [place] teeth removed (04/28/1950) Anesthesia History of oral surgery (1999) History of squamous cell carcinoma excision (08/2013) History of excision of mass (04/2010) History of ankle surgery (06/2008) History of foot surgery (~1997) History of cataract removal with insertion of prosthetic lens Status post colonoscopy (02/2014) Status post colonoscopy (04/2011) Status post colonoscopy (10/2010) Status post colonoscopy (04/2010) Status post tubal ligation (~1984) Status post cholecystectomy (~1984) Status post breast biopsy Status post dilation and curettage (~1968) Status post dilation and curettage (~1967) History of tonsillectomy (1946) Family History Brother Alcohol abuse Diabetes mellitus Cancer Hypertension High cholesterol Septicemia Brother Alcohol abuse Drug abuse [place] Child Age: 53 High cholesterol Child Age: 50 Seasonal allergies Mother Hypertension High cholesterol Heart disease Breast cancer Sister Age: 75 Atrial fibrillation Father Emphysema of lung Family/Other No problems noted. Social History marital status: number of children: 3 household members: spouse lives independently: Yes caregiver/support person: No housing: house Smoking Status: Never smoker second hand exposure: No alcohol intake: former substance use type: does not use Assessment & Plan Post-op Postoperative Procedures: Procedures Operation Date: 09/19/24 09:15 Actual Procedure Side Surgeon p Left Hip Nailing Left Carlo Aguayo MD
[2024-09-20] MEDS: ASPIRIN EC 81 MG TABLET PO ×2 (09:20→20:50)
[2024-09-20] MEDS: OXYCODONE IR 5 MG TABLET PO ×2 (09:20→13:44)
[2024-09-20] MEDS: DOCUSATE 100 MG CAPSULE PO (09:20)
[2024-09-20] MEDS: polyethylene glycoL 3350 17 GM POWD.PACK PO (09:20)
--- NOTE | 2024-09-20 10:38 | PT.IIE ---
Current Diagnoses Displaced intertrochanteric fracture of left femur, initial encounter for closed fracture (09/18/24) Surgery Performed Operation Date: 09/19/24 09:15 Actual Procedures p Left Hip Nailing(Left) - Carlo Aguayo MD Surgical History (Last Reviewed 09/18/24 @ 20:06 by Chaitanya Adorno MD) Anesthesia History of ankle surgery (06/2008) History of cataract removal with insertion of prosthetic lens History of excision of mass (04/2010) History of foot surgery (~1997) History of oral surgery (1999) History of squamous cell carcinoma excision (08/2013) History of tonsillectomy (1946) Status post breast biopsy Status post cholecystectomy (~1984) Status post colonoscopy (04/2010) Status post colonoscopy (10/2010) Status post colonoscopy (04/2011) Status post colonoscopy (02/2014) Status post dilation and curettage (~1967) Status post dilation and curettage (~1968) Status post tubal ligation (~1984) [place] teeth removed (04/28/1950) Medical History (Last Reviewed 09/18/24 @ 20:06 by Chaitanya Adorno MD) Abnormal mammogram (04/28/69) Anemia (1970) Ankle fracture (2008) Ankle pain (2008) Asthma Carpal tunnel syndrome (03/07/11) Chicken pox (1946) Chronic cough (1999) Colorectal cancer (2010) Eczema (1941) Hayfever (1941) Hyperlipidemia Measles (1953) Osteopenia (1999) Plantar warts (1955) Premature ventricular contractions (2011) Shoulder pain (2002) 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 1 step and no rail to enter Home Environment Standard Height Toilet,Tub/ Shower Home Equipment Front Wheel Walker,Bedside Commode,Grab Bars In Shower Employment Status Retired M2 PT-IP Current Condition Start: 09/20/24 08:08 Freq: NEEDED Status: Active Protocol: Document 09/20/24 09:20 MB (Rec: 09/20/24 10:38 MB Desktop) Physical Therapy Current Condition Current Condition Evaluation Date 09/20/24 Treatment Diagnosis Fall, M3 PT-IP Subjective Start: 09/20/24 08:08 Freq: NEEDED Status: Active Protocol: Document 09/20/24 09:20 MB (Rec: 09/20/24 10:38 MB Desktop) Subjective Physical Therapy Visit Type Type Initial Evaluation Visit Start Time 09:20 Visit Stop Time 09:45 Number of DIETARY INTERNSHIP Visits 0 Physical Therapy Visit Comments Patient Comments Pt is agreeable to PT, son and friend in room during assessment. Therapy Pain Assessment Pain When Pain Assessed At Rest Pain Present Pain Present Pain Reported Location left hip Intensity 3 Scale Used Numeric (0 - 10) M4 PT-IP Mobility and Gait Start: 09/20/24 08:08 Freq: NEEDED Status: Active Protocol: Document 09/20/24 09:20 MB (Rec: 09/20/24 10:38 MB Desktop) PT-Bed Mobility Assessment Supine to Sit Supine to Sit Contact Guard Assistance,1 Person Assistance,Head of Bed Elevated,Bedrails Scooting Scooting to Edge of Bed Contact Guard Assistance PT-Transfer Assessment Sit to and From Stand Sit to and from Stand Minimal Assistance Equipment Transfer Assistive Device Gait Belt,Front Wheeled Walker Orthotic/Prosthetic Devices or Brace: No Transfers Transfer Destination Chair Transfer Technique Stepping Transfer Ability Level of Assist Minimal Assistance Comments Mobility Comments PT loops bottom of gait belt and places around pt's left foot. BP and HR in LUE: supine 114/65, 104; sitting d/t pt cannot rise to feet quickly 124/77, 131; standing after stepping to chair 113/82, 128. Gait Assessment Gait Gait Assistance Required: Minimum Assistance Distance (Feet) 2 Able to Maintain Weight Bearing Status Yes During Gait Assistive Devices Assistive Device Gait Belt,Front Wheeled Walker Gait Deviations General Gait Pattern Antalgic,Decreased Stride Length,Decreased Feet Clearance,Flexed Trunk,Step-to Gait Factors Limiting Gait Function Factors Limiting Gait Function Decreased Activity Tolerance, Decreased Strength,Difficulty Following Directions, Incoordination,Limited Range of Motion,Pain,Poor Balance, Poor Safety Awareness Comments Gait Comments Cues for walker, then left foot and then right foot for forward stepping to initiate more tolerable gait and then reverse: right foot, then left foot and then walker for retropulsion. Progress to normal step-through gait pattern as able PT-Balance Assessment Sitting Balance and Reactions Static Sitting Balance Ability Good Dynamic Sitting Balance Ability Good Standing Balance and Reactions Static Standing Balance Ability Fair Dynamic Standing Balance Ability Fair Device Used RW M5 PT-IP Objective Assessments Start: 09/20/24 08:08 Freq: NEEDED Status: Active Protocol: Document 09/20/24 09:20 MB (Rec: 09/20/24 10:38 MB Desktop) Orientation Orientation/Cognition Level of Alertness Alert Language Function Ability No Deficits Noted Safety Awareness Decreased Safety Awareness Memory Description No Deficits Noted Gross Range of Motion Upper Extremity ROM Impairments Defer to OT Lower Extremity ROM Assessment Left Impaired Impairments History of left knee and ankle injuries and no active HS in bed post-op, lateral left thigh edema proximal to knee, limited left ankle AROM in hook lying Strength Lower Extremity Strength Assessment Left Impaired Comments Strength Comments Pt does not tolerate MMT LLE and see AROM comments Coordination Assessment Assessment Coordination Comments NT Muscle Tone Comments Muscle Tone Comments Increased PF tone L ankle M6 PT-IP Treatment Start: 09/20/24 08:08 Freq: NEEDED Status: Active Protocol: Document 09/20/24 09:20 MB (Rec: 09/20/24 10:38 MB Desktop) Physical Therapy Treatment Exercises Exercises Ankle Pumps Education Education Provided Weight Bearing Status,Safety M7 PT-IP Assessment and Plan Start: 09/20/24 08:08 Freq: NEEDED Status: Active Protocol: Document 09/20/24 09:20 MB (Rec: 09/20/24 10:38 MB Desktop) PT Summary Assessment and Plan Potential Rehabilitation Potential Good Status of Condition at Evaluation Evolving Summary Impairments Pain,ROM,Strength,Balance, Coordination,Tone,Bed Mobility ,Transfers,Gait,Activity Tolerance Assessment Summary Pt is an 84 y/o female adm after fall outside on drive way, left intertrochanteric fracture and now s/p left hip nailing last date. She is WBAT . Pt reports 3/10 left hip pain at rest and 4/10 pain with WB. She is not orthostatic but she is tachy with mobility. She has trouble advancing left foot today and has a history of left knee and ankle fractures and reduced left ankle range and function. She lives at home alone with her dog and will benefit from SNF at d/c. Goals Bed Mobility Goal Independent Transfer Goal Standby Assistance,Front Wheeled Walker Gait Goal Standby Assistance,Front Wheel Walker Gait Distance 75 Other Goals Pt will ascend and descend 1 step with LRAD and no more than CGA to allow safe home entrance. Days to Meet Goals 5 Frequency of Treatment Frequency Of Treatment Once a Day Other frequency 1-2x/day Treatment Plan Physical Therapy Treatment Plan Bed Mobility Training,Transfer Training,Gait Training, Therapeutic Exercise,Balance Retraining,Post Op Education, Discharge Planning,Hot or Cold Pack,Neuromuscular Re-ed, Coordination Retraining,Manual Therapy Weight Bearing Status Weight Bearing Status Weight Bear as Tolerated Recommendations To Nursing Amount of Assist Needed 2 Person Assist Discharge Recommendations PT Discharge Recommendations SNF Rehab Transportation Needs at Discharge Private Vehicle,Wheelchair/ Cabulance - PT assist 1
--- NOTE | 2024-09-20 11:00 | OT.IP.EVAL ---
Current Diagnoses Displaced intertrochanteric fracture of left femur, initial encounter for closed fracture (09/18/24) Surgery Performed Operation Date: 09/19/24 09:15 Actual Procedures p Left Hip Nailing(Left) - Carlo Aguayo MD Past Medical History (Last Reviewed 09/18/24 @ 20:06 by Chaitanya Adorno MD) Abnormal mammogram (04/28/69) Anemia (1971) Ankle fracture (2008) Ankle pain (2008) Asthma Carpal tunnel syndrome (03/07/11) Chicken pox (1947) Chronic cough (1999) Colorectal cancer (2010) Eczema (194) Hayfever (194) Hyperlipidemia Measles (1953) Osteopenia (1999) Plantar warts (1955) Premature ventricular contractions (2011) Shoulder pain (2002) 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) Thyroiditis (1989) Urinary incontinence (2012) Surgical History (Last Reviewed 09/18/24 @ 20:06 by Chaitanya Adorno MD) Anesthesia History of ankle surgery (06/2008) History of cataract removal with insertion of prosthetic lens History of excision of mass (04/2010) History of foot surgery (~1997) History of oral surgery (1999) History of squamous cell carcinoma excision (08/2013) History of tonsillectomy (1946) Status post breast biopsy Status post cholecystectomy (~1984) Status post colonoscopy (04/2010) Status post colonoscopy (10/2010) Status post colonoscopy (04/2011) Status post colonoscopy (02/2014) Status post dilation and curettage (~1968) Status post dilation and curettage (~1968) Status post tubal ligation (~1984) [place] teeth removed (04/28/1950) Occupational Therapy Inpatient Evaluation/Re-Eval M1 PT/OT-IP Prior Functional Status Start: 09/20/24 08:08 Freq: NEEDED Status: Active Protocol: Document 09/20/24 13:06 CGR (Rec: 09/20/24 13:15 CGR Desktop) Medical Review Prior Functional Status Medical History Reviewed Yes Diet/Fluid Consistency Regular Communication WNLs Mobility and Gait I Activities of Daily Living and IADL's I, lives alone, has a dog Prior Functional Level (Other details) Pt has very supportive family that are local Social History Household Members none Living Arrangements House Number of Floors (Floors) One Floor Number of Stairs To Enter/Railing? 1 step and no rail to enter Home Environment Standard Height Toilet,Tub/ Shower Home Equipment Front Wheel Walker,Bedside Commode,Grab Bars In Shower Employment Status Retired M2 OT-IP Current Condition Start: 09/20/24 13:06 Freq: Status: Active Protocol: Document 09/20/24 13:06 CGR (Rec: 09/20/24 13:15 CGR Desktop) Occupational Therapy Current Condition Current Condition Evaluation Date 09/20/24 Treatment Diagnosis GLF with L femur fx, s/p IM nailing Diagnosis Onset Date 09/18/24 Weight Bearing Status Weight Bearing Status Weight Bear as Tolerated M3 OT- IP Subjective and Pain Start: 09/20/24 13:06 Freq: Status: Active Protocol: Document 09/20/24 13:06 CGR (Rec: 09/20/24 13:15 CGR Desktop) OT- Subjective Occupational Therapy Visit Type Type Initial Evaluation Visit Start Time 10:22 Visit Stop Time 11:00 Notes Pt's family present throughout session. OT Pain Assessment Pain When Pain Assessed At Rest Pain Present Pain Present Pain Reported Location left hip Intensity 4 Scale Used Numeric (0 - 10) Management Techniques Distraction,Modification of Treatment,Re-positioning, Timing of Activity with Medications M4 OT- IP ADL's Start: 09/20/24 13:06 Freq: Status: Active Protocol: Document 09/20/24 13:06 CGR (Rec: 09/20/24 13:15 CGR Desktop) OT [id number] Comments OT Self-Feeding Comments not meal time OT ADL-Grooming General Evaluation Grooming Ability Standby Assistance Comments OT Grooming Comments washing hands seated in chair OT ADL-Oral Care Comments Oral Care Comments not performed OT ADL-Dressing General Eval Lower Body Dressing Ability Total Assistance Areas Needing Assistance Shoes Comments OT Dressing Comments seated in chair OT ADL-Toileting General Evaluation Toileting Ability Standby Assistance Comments OT Toileting Comments urination seated on toilet OT ADL-Bathing Comments OT Bathing Comments not performed M5 OT- IP IADL's Start: 09/20/24 13:06 Freq: Status: Active Protocol: Document 09/20/24 13:06 CGR (Rec: 09/20/24 13:15 CGR Desktop) OT-Instrumental Activities of Daily Living Deficits IADL Deficits Identified No Deficits Home Safety Awareness Awareness of Need for Assistance at Home Good Awareness Ability to Problem Solve Emergency Able to Problem Solve Situations Medication Management Medication Management No Deficits Identified Money Management Money Management No Deficits Identified Meal Preparation Meal Preparation No Deficits Identified Support Director Support Director No Deficits Identified 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 OT- IP Functional Cognition Start: 09/20/24 13:06 Freq: Status: Active Protocol: Document 09/20/24 13:06 CGR (Rec: 09/20/24 13:15 CGR Desktop) Cognitive Factors Limiting Selfcare Function Cognitive Ability Level of Alertness Alert Patient Orientation Name,Age,Birthday,Month,Date, Year,Day of Week,Place, Situation Attention Span Ability Capable of Focused Attention, Capable of Sustained Attention Ability to Follow Commands Able to Follow One Step Commands with Increased Time, Able to Follow One Step Commands with Repetition OT- Vision and Hearing OT- Hearing Assessment OT- Hearing Assessment WFL OT- Vision Assessment Visual Attentiveness WFL Occular Pursuits WFL Visual Convergence WFL M7 OT- IP Mobility and Balance Start: 09/20/24 13:06 Freq: Status: Active Protocol: Document 09/20/24 13:06 CGR (Rec: 09/20/24 13:15 CGR Desktop) OT-Transfer Assessment Sit to and From Stand Sit to and from Stand Minimal Assistance Transfers Transfer Ability Minimal Assistance Technique Transfer Destination Chair,Toilet Transfer Technique Stand Step Pivot Devices Transfer Assistive Devices Gait Belt,Front Wheeled Walker Comments Mobility Comments pt needs vc for use of the walker OT- Gait Assessment Gait Gait Assistance Required: Minimum Assistance Assistive Devices Assistive Device Gait Belt,Front Wheeled Walker Comments Gait Ability Comments mobility in the room OT- Balance Assessment Sitting Balance and Reactions Static Sitting Balance Ability Normal Dynamic Sitting Balance Ability Normal M8 OT- IP Objective Assessments Start: 09/20/24 13:06 Freq: Status: Active Protocol: Document 09/20/24 13:06 CGR (Rec: 09/20/24 13:15 CGR Desktop) OT Gross Range of Motion Upper Extremity Range of Motion Assessment Within Functional Limits OT Strength Upper Extremity Strength Assessment Within Functional Limits Comments Strength Comments grossly 4/5 OT- Coordination Assessment Upper Extremity Finger to Nose Test Within Functional Limits Finger Tapping Test Within Functional Limits OT-Muscle Tone Assessment Muscle Tone WNL Yes OT Sensation Assessment Edema Edema Absent M9 OT- IP Assessment and Plan Start: 09/20/24 13:06 Freq: Status: Active Protocol: Document 09/20/24 13:06 CGR (Rec: 09/20/24 13:15 CGR Desktop) OT Summary Assessment and Plan Potential Rehabilitation Potential Excellent Analytic Complexity at Evaluation Moderate Summary OT Impairments Pain,Balance,Functional Mobility,Grooming,Dressing, Toileting,Bathing,Toilet Transfers,Shower Transfers, Activity Tolerance Progress Towards Goals Progressing Toward Goals Assessment Summary Pt presents as a moderate complexity evaluation s/p admit for fall with hip fx and IM nailing. Pt is WBAT and performed well in todays session, ambulating from chair to toilet. Pt is likely to progress quickly but may benefit from some SNF upon discharge. Goals Self-Feeding Goal Independent Grooming Goal Independent Dressing Goal Independent Toileting Goal Independent Bathing Goal Independent Toilet Transfer Goal Independent Shower Transfer Goal Independent Days to Meet Goals 10 Frequency of Treatment Other frequency 5x per week Treatment Plan OT Treatment Plan ADL Training,Functional Mobility,Patient/Family Education,Discharge Planning Other Treatment Recommendations and Next LB dressing with DME Treatment Focus Discharge Recommendations OT Discharge Recommendations Home vs SNF Transportation Needs at Discharge Private Vehicle
--- NOTE | 2024-09-20 11:44 | PC.NURSE ---
Patients dressings x2 both cdi. Patient is a one person assist with walker to get out of bed. Given one oxycodone for discomfort 11/04. Helpful for pain. Sitting up in chair now and comfortable. Visiting with son.
--- NOTE | 2024-09-20 13:04 | CM.DPC ---
Addendum entered by VILLA Le 09/20/24 13:27: ADD: Per [facility] review, they can accept pt at d/c if [facility]'s SNF and have a bed tomorrow Tues if needed. BF Original Note: DCP SNF vs HH Cont: Per Ortho, pt tolerated surgery well and to work with PT/OT today. Per PT/OT, recommending SNF vs HH pending progress and family support. SW met bedside with pt and multiple family members and pt confirms she has no hx of HH or SNF but did have a prior surgery and was able to d/c home with family support. SW provided the SNF Choice list and discussed SNF services and need to go to [facility] SNF and get [facility] for coverage. Family and pt reviewed Choice List and if SNF needed preference is [facility]. Discussed HH services and frequency and provided HH Choice List and pt and family confirm that they are hopeful for home with family to stay 24/7 and utilize HH but would like to see how pt does with PT/OT in the AM and request a referral to [facility] so they can have plan A and B for discharge as they are cautious about pt discharging directly home at d/c. If pt safe for d/c home, no HH preference at this time. SW contacted [facility] admissions with new referral and they will review to determine if they can accept and confirm if they have open beds available. No HH referral made yet as waiting for further PT/OT to determine HH vs SNF. SW faxed [place] clinicals and PT/OT requesting review for [facility] auth. Plan: SW to follow closely for [facility] and [place] review for SNF and to follow in the AM after further PT/OT to confirm SNF vs home with family and HH pending progress. PASRR needed if SNF. VILLA Le
[2024-09-20 14:00] VITALS: BP 114/60; PULSE 89; RESP 15; TEMP 36.7; O2SAT 92
[2024-09-20 20:00] VITALS: BP 125/71; PULSE 85; RESP 19; TEMP 36.4; O2SAT 92
[2024-09-20] MEDS: hydrOXYzine HCL 25 MG TABLET PO (20:50)
[2024-09-21 05:14] VITALS: BP 108/59; PULSE 104; RESP 16; TEMP 36.7; O2SAT 91
[2024-09-21 06:30] LABS: Add Manual Diff / Slide Review NO; Basophils Absolute Auto 100 /uL (0-100); Basophils Percent Auto 0.6 % (0-2); Eosinophils Absolute Auto 500 /uL (0-450); Eosinophils Percent Auto 4.7 % (2-4); Hematocrit 27.4 % (36-46); Hemoglobin 9.2 g/dL (12.0-16.0); Lymphocytes Absolute Auto 2100 /uL (1100-4500); Lymphocytes Percent Auto 18.5 % (25-40); Mean Corpuscular HGB Conc 33.6 % (30-36); Mean Corpuscular Volume 92.2 fL (80-100); Monocytes Absolute Auto 600 /uL (0-900); Monocytes Percent Auto 5.3 % (3-14); Neutrophils Absolute Auto 7900 /uL (1500-7000); Neutrophils Percent Auto 70.9 % (50-75); Platelet Count 165 X10^3/uL (150-400); Red Blood Cell Count 2.97 X10^6/uL (4.0-5.2); Red Cell Distribution Width 14.1 % (11.6-14.8); White Blood Cell Count 11.1 X10^3/uL (4.5-11.0)
[2024-09-21 06:42] LABS: BUN Creatinine Ratio 22.6 (6-22); Blood Urea Nitrogen 21 mg/dL (7-17); Calcium 8.9 mg/dL (8.4-10.2); Carbon Dioxide 26 mmol/L (22-32); Chloride 104 mmol/L (98-107); Estimated Glomerular Filt Rate > 60 mL/min (>60); Glucose 111 mg/dL (70-99); HEMOLYSIS < 15 (0-50); Potassium 4.3 mmol/L (3.4-5.1); Sodium 132 mmol/L (137-145)
--- NOTE | 2024-09-21 08:24 | PM.PN.IH.1 ---
Subjective Subjective Date Patient Seen: 09/21/24 Exam Vital Signs (past 8 hours): - 09/21/24 05:14 Temperature 98.1 F Pulse Rate 104 H Respiratory Rate 16 Blood Pressure 108/59 L Pulse Oximetry 91 Fraction of Inspired Oxygen 32 SaO2/FiO2 Ratio 306 Oxygen Delivery Method Room Air Oxygen Flow Rate 0 Objective Labs 09/21/24 06:07 09/21/24 06:07 Labs: Laboratory Results - last 24 hr 09/21/24 06:07 WBC 11.1 H RBC 2.97 L Hgb 9.2 L Hct 27.4 L MCV 92.2 MCH 31.0 MCHC 33.6 RDW 14.1 Plt Count 165 Neut % (Auto) 70.9 Lymph % (Auto) 18.5 L [place] % (Auto) 5.3 Eos % (Auto) 4.7 H Baso % (Auto) 0.6 Neut # (Auto) 7900 H Lymph # (Auto) 2100 [place] # (Auto) 600 Eos # (Auto) 500 H Baso # (Auto) 100 Sodium 132 L Potassium 4.3 Chloride 104 Carbon Dioxide 26 BUN 21 H Creatinine 0.93 Estimated GFR > 60 BUN/Creatinine Ratio 22.6 H Glucose 111 H Calcium 8.9 PFSH Medical History Carpal tunnel syndrome (03/07/11) Abnormal mammogram (04/28/69) Chronic cough (1999) Asthma Hayfever (1941) Shoulder pain (2002) Osteopenia (1999) Ankle fracture (2008) Ankle pain (2008) Plantar warts (1955) Eczema (1941) Measles (1953) Chicken pox (1946) Anemia (1970) Urinary incontinence (2012) Thyroiditis (1989) Premature ventricular contractions (2011) Hyperlipidemia Colorectal cancer (2010) 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) Surgical History [place] teeth removed (04/28/1950) Anesthesia History of oral surgery (1999) History of squamous cell carcinoma excision (08/2013) History of excision of mass (04/2010) History of ankle surgery (06/2008) History of foot surgery (~1997) History of cataract removal with insertion of prosthetic lens Status post colonoscopy (02/2014) Status post colonoscopy (04/2011) Status post colonoscopy (10/2010) Status post colonoscopy (04/2010) Status post tubal ligation (~1984) Status post cholecystectomy (~1984) Status post breast biopsy Status post dilation and curettage (~1968) Status post dilation and curettage (~1967) History of tonsillectomy (1946) Family History Brother Alcohol abuse Diabetes mellitus Cancer Hypertension High cholesterol Septicemia Brother Alcohol abuse Drug abuse Drowning Child Age: 53 High cholesterol Child Age: 50 Seasonal allergies Mother Hypertension High cholesterol Heart disease Breast cancer Sister Age: 75 Atrial fibrillation Father Emphysema of lung Family/Other No problems noted. Social History marital status: number of children: 3 household members: none lives independently: Yes caregiver/support person: No housing: house Smoking Status: Never smoker second hand exposure: No alcohol intake: former substance use type: does not use Assessment & Plan Time-Based Coding :: [TOTAL MINUTES] spent with patient and on the chart (including review of chart, obtaining history, exam, reviewing outside data, placing orders, documenting exam and treatment plan, and counseling patient) on [DATE].
[2024-09-21] MEDS: polyethylene glycoL 3350 17 GM POWD.PACK PO (09:42)
[2024-09-21] MEDS: IBUPROFEN 400 MG TABLET 800 MG PO ×2 (09:43→15:19)
[2024-09-21] MEDS: ACETAMINOPHEN 325 MG TABLET 650 MG PO ×2 (09:44→15:19)
[2024-09-21] MEDS: DOCUSATE 100 MG CAPSULE PO (09:45)
[2024-09-21] MEDS: ASPIRIN EC 81 MG TABLET PO (09:45)
--- NOTE | 2024-09-21 10:41 | OT.IP.TRT ---
Current Diagnoses Displaced intertrochanteric fracture of left femur, initial encounter for closed fracture (09/18/24) Surgery Performed Operation Date: 09/19/24 09:15 Actual Procedures p Left Hip Nailing(Left) - Carlo Aguayo MD Occupational Therapy Treatment Note M2 OT-IP Current Condition Start: 09/20/24 13:06 Freq: Status: Active Protocol: Document 09/20/24 13:06 CGR (Rec: 09/20/24 13:15 CGR Desktop) Occupational Therapy Current Condition Current Condition Evaluation Date 09/20/24 Treatment Diagnosis GLF with L femur fx, s/p IM nailing Diagnosis Onset Date 09/18/24 Weight Bearing Status Weight Bearing Status Weight Bear as Tolerated M3 OT- IP Subjective and Pain Start: 09/20/24 13:06 Freq: Status: Active Protocol: Document 09/21/24 10:28 RUT (Rec: 09/21/24 10:40 RUT Desktop) OT- Subjective Occupational Therapy Visit Type Type Treatment Note Visit Start Time 09:45 Visit Stop Time 10:23 Notes Pt family present throughout tx. Pt agreeable to participating in OT. OT Pain Assessment Pain When Pain Assessed During Mobility Pain Present Pain Present Pain Reported Location left hip Intensity 6 Scale Used Numeric (0 - 10) Management Techniques Distraction,Modification of Treatment,Re-positioning, Timing of Activity with Medications M4 OT- IP ADL's Start: 09/20/24 13:06 Freq: Status: Active Protocol: Document 09/21/24 10:28 RUT (Rec: 09/21/24 10:40 RUT Desktop) OT [id number] Comments OT Self-Feeding Comments not meal time OT ADL-Grooming General Evaluation Grooming Ability Standby Assistance Comments OT Grooming Comments washing hands seated in chair OT ADL-Oral Care Comments Oral Care Comments not performed OT ADL-Dressing General Eval Lower Body Dressing Ability Moderate Assistance,Maximum Assistance Comments OT Dressing Comments Pt seated in chair. OT educates on use of AE (absorption plant operator , sockaid) for underwear and socks. Pt requires min A to start underwear on L foot and to pull up over left hip. Pt requires max A to doff underwear. Pt assists with using absorption plant operator to remove from feet only. Pt doffs socks with min A to start absorption plant operator in the correct spot. Pt dons socks with min A with AE. OT ADL-Toileting General Evaluation Toileting Ability Standby Assistance Comments OT Toileting Comments urination seated on toilet OT ADL-Bathing Comments OT Bathing Comments not performed M5 OT- IP IADL's Start: 09/20/24 13:06 Freq: Status: Active Protocol: Freq: Status: Active Protocol: Document 09/21/24 10:28 RUT (Rec: 09/21/24 10:40 [facility] Desktop) OT- Bed Mobility Assessment Supine to Sit Supine to Sit Assist Moderate Assistance Scooting Scooting to Edge of Bed Minimal Assistance,Head of Bed Elevated,Bedrails OT-Transfer Assessment Sit to and From Stand Sit to and from Stand Minimal Assistance Transfers Transfer Ability Minimal Assistance Technique Transfer Destination Chair,Toilet Transfer Technique Stand Step Pivot Devices Transfer Assistive Devices Gait Belt,Front Wheeled Walker Comments Mobility Comments pt needs vc for use of the walker OT- Gait Assessment Gait Gait Assistance Required: Minimum Assistance Assistive Devices Assistive Device Gait Belt,Front Wheeled Walker Comments Gait Ability Comments mobility in the room OT- Balance Assessment Sitting Balance and Reactions Static Sitting Balance Ability Normal Dynamic Sitting Balance Ability Normal Standing Balance and Reactions Static Standing Balance Ability Fair Dynamic Standing Balance Ability Fair M8 OT- IP Objective Assessments Start: 09/20/24 13:06 Freq: Status: Active Protocol: Document 09/20/24 13:06 CGR (Rec: 09/20/24 13:15 CGR Desktop) OT Gross Range of Motion Upper Extremity Range of Motion Assessment Within Functional Limits OT Strength Upper Extremity Strength Assessment Within Functional Limits Comments Strength Comments grossly 4/5 OT- Coordination Assessment Upper Extremity Finger to Nose Test Within Functional Limits Finger Tapping Test Within Functional Limits OT-Muscle Tone Assessment Muscle Tone WNL Yes OT Sensation Assessment Edema Edema Absent M9 OT- IP Assessment and Plan Start: 09/20/24 13:06 Freq: Status: Active Protocol: Document 09/21/24 10:28 RUT (Rec: 09/21/24 10:40 [facility] Desktop) OT Summary Assessment and Plan Potential Rehabilitation Potential Excellent Analytic Complexity at Evaluation Moderate Summary OT Impairments Pain,Balance,Functional Mobility,Grooming,Dressing, Toileting,Bathing,Toilet Transfers,Shower Transfers, Activity Tolerance Progress Towards Goals Progressing Toward Goals Assessment Summary Pt was pleasant and cooperative with OT tx session . Pt performed all tasks with extra time due to pain. OT educated pt on use of AE for LB dressing, specifically absorption plant operator and sock aid. Pt performed these tasks with less assistance than what was needed at al. Pt would benefit from continued education for improved I and safety. Pt would benefit from SNF upon d/c and will likely make gains quickly. Goals Self-Feeding Goal Independent Grooming Goal Independent Dressing Goal Independent Toileting Goal Independent Bathing Goal Independent Toilet Transfer Goal Independent Shower Transfer Goal Independent Days to Meet Goals 10 Frequency of Treatment Other frequency 5x per week Discharge Recommendations OT Discharge Recommendations Home vs SNF Transportation Needs at Discharge Private Vehicle
--- NOTE | 2024-09-21 11:25 | PT.IPTN ---
Current Diagnoses Displaced intertrochanteric fracture of left femur, initial encounter for closed fracture (09/18/24) Surgery Performed Operation Date: 09/19/24 09:15 Actual Procedures p Left Hip Nailing(Left) - Carlo gAuayo MD Physical Therapy Treatment Note M2 PT-IP Current Condition Start: 09/20/24 08:08 Freq: NEEDED Status: Active Protocol: Document 09/20/24 09:20 MB (Rec: 09/20/24 10:38 MB Desktop) Physical Therapy Current Condition Current Condition Evaluation Date 09/20/24 Treatment Diagnosis Fall, L intertrochanteric fx s /p nailing M3 PT-IP Subjective Start: 09/20/24 08:08 Freq: NEEDED Status: Active Protocol: Document 09/21/24 11:25 AB (Rec: 09/21/24 12:38 AB [id number]) Subjective Physical Therapy Visit Type Type Treatment Note Visit Start Time 11:25 Visit Stop Time 12:15 Number of GUITAR REPAIR TECHNICIAN Visits 0 Physical Therapy Visit Comments Patient Comments agreeable to do PT Therapy Pain Assessment Pain When Pain Assessed At Rest Pain Present Pain Present Pain Reported Location left hip Intensity 2 Scale Used increase during mobility Pain Management Techniques Distraction,Modification of Treatment,Re-positioning, Timing of Activity with Medications M4 PT-IP Mobility and Gait Start: 09/20/24 08:08 Freq: NEEDED Status: Active Protocol: Document 09/21/24 11:25 AB (Rec: 09/21/24 12:38 AB [id number]) PT-Bed Mobility Assessment Supine to Sit Supine to Sit Minimal Assistance Sit to Supine Sit to Supine Minimal Assistance,Moderate Assistance,1 Person Assistance ,Head of Bed Elevated PT-Transfer Assessment Sit to and From Stand Sit to and from Stand Minimal Assistance,1 Person Assistance,Use of Upper Extremities Equipment Transfer Assistive Device Gait Belt,Front Wheeled Walker Orthotic/Prosthetic Devices or Brace: No Transfers Transfer Destination Bed,Chair Transfer Technique ambulated Transfer Ability Level of Assist Contact Guard Assistance, Minimal Assistance,1 Person Assistance,Use of Upper Extremities Comments Mobility Comments pt sitting on the chair and family in room. family plans to provide pt with 24/ assist . Son will be assisting pt for next to days and family will rotate to assist pt. pt unsure if she wants to go home or go to SNF rehab. caregiver training conducted. educated son on how to use safety belt and how to assist pt. son was able to put safety belt on pt. pt completed sit to stand from EOB min A and max cues and pt ambulated to EOB using fWW min A and cues. pt completed sit to supine min to mod A for LE elevation and max cues for techniques. completed supine to sit min A and cues. educated family on how to assist pt with bed mobility. educated pt's son how to to assist pt and to cue pt if needed. pt completed sit to stand from EOB with son assisting. pt ambulated towards platform step. stair climbing training: pt completed up/down platform step using FWW mod A and max cues with PT initially assisting. pt repeated with son assisting. pt ambulated back to chair using fWW min A and cues. pt stated that she feels that her LLE is giving out on her. also c/o feeling fatigue and hard to process things at this time. positioned pt on the chair. informed pt and family regarding current level of assistance and risks and benefits of d/c home vs SNF rehab. pt stated that she wants to go to rehab. call light and table placed within reach. informed home health care case manager regarding pt's decision for SNF rehab. Gait Assessment Gait Gait Assistance Required: Contact Guard Assist,Minimum Assistance,1 Person Assist Distance (Feet) 25 Able to Maintain Weight Bearing Status Yes During Gait Assistive Devices Assistive Device Gait Belt,Front Wheeled Walker Orthotic/Prosthetic Devices or Brace: No Gait Deviations General Gait Pattern Antalgic,Decreased Stride Length,Decreased Feet Clearance Factors Limiting Gait Function Factors Limiting Gait Function Decreased Activity Tolerance, Decreased Strength,Difficulty Following Directions,Limited Range of Motion,Pain,Poor Balance,Poor Safety Awareness Stair Climbing Assessment Evaluation Level of Assist On Stairs Moderate Assistance Devices Stair Climbing Assistive Devices Front Wheel Walker Technique/Endurance Stair Climbing Direction Ascend and Descend Stair Climbing Technique Step to Step Number of Steps Climbed 1 Stair Climbing Set # Repetitions (reps) 2 M5 PT-IP Objective Assessments Start: 09/20/24 08:08 Freq: NEEDED Status: Active Protocol: Document 09/20/24 09:20 MB (Rec: 09/20/24 10:38 MB Desktop) Orientation Orientation/Cognition Level of Alertness Alert Language Function Ability No Deficits Noted Safety Awareness Decreased Safety Awareness Memory Description No Deficits Noted Gross Range of Motion Upper Extremity ROM Impairments Defer to OT Lower Extremity ROM Assessment Left Impaired Impairments History of left knee and ankle injuries and no active HS in bed post-op, lateral left thigh edema proximal to knee, limited left ankle AROM in hook lying Strength Lower Extremity Strength Assessment Left Impaired Comments Strength Comments Pt does not tolerate MMT LLE and see AROM comments Coordination Assessment Assessment Coordination Comments NT Muscle Tone Comments Muscle Tone Comments Increased PF tone L ankle M6 PT-IP Treatment Start: 09/20/24 08:08 Freq: NEEDED Status: Active Protocol: Document 09/21/24 11:25 AB (Rec: 09/21/24 12:38 AB [id number]) Physical Therapy Treatment Education Education Provided Safety M7 PT-IP Assessment and Plan Start: 09/20/24 08:08 Freq: NEEDED Status: Active Protocol: Document 09/21/24 11:25 AB (Rec: 09/21/24 12:38 AB [id number]) PT Summary Assessment and Plan Potential Rehabilitation Potential Good Summary Impairments Pain,ROM,Strength,Balance, Coordination,Sensation,Tone, Cognition,Bed Mobility, Transfers,Gait,Activity Tolerance Progress Towards Goals Slow Progress due to Pain,Slow Progress due to Activity Tolerance Assessment Summary pt requiring min to mod A for bed mobility, min to mod A for transfers and ambulation using FWW. pt will require 24/ 7 assist at this time and will benefit from SNF rehab. Caregiver training was conducted. Pt initially was not sure if she wants to go home with family to assist or go to SNF rehab. pt decided to go to SNF rehab after PT tx session today and stated that her LLE is giving out on her and she gets tired easily and wants to get stronger before she goes home. home health care case manager aware. Goals Bed Mobility Goal Independent Transfer Goal Standby Assistance,Front Wheeled Walker Gait Goal Standby Assistance,Front Wheel Walker Gait Distance 75 Other Goals Pt will ascend and descend 1 step with LRAD and no more than CGA to allow safe home entrance. Days to Meet Goals 5 Frequency of Treatment Frequency Of Treatment Once a Day Treatment Plan Physical Therapy Treatment Plan Bed Mobility Training,Transfer Training,Gait Training, Therapeutic Exercise,Balance Retraining,Post Op Education, Discharge Planning,Hot or Cold Pack,Neuromuscular Re-ed, Coordination Retraining,Manual Therapy Weight Bearing Status Weight Bearing Status Weight Bear as Tolerated Recommendations To Nursing Amount of Assist Needed 1 Person Assist Discharge Recommendations PT Discharge Recommendations SNF Rehab Transportation Needs at Discharge Private Vehicle,Wheelchair/ Cabulance - PT assist 1
--- NOTE | 2024-09-21 11:40 | CM.DPC ---
DCP SNF vs HH Per MD Dr. Maciel, will round on the patient about lunch time after PT/OT has worked with pt to determine SNF vs HH. Notified that SNF can accept and [facility] auth'd if SNF needed. Per OT, pt more painful today but was able to participate and family still waiting for PT to make determination if they feel they can provide 24/7 care and HH to pt vs SNF. [facility] confirms they can accept pt when medically stable and received call from Sylvester Martínez CM with auth #[id number]. SW met bedside with pt and family and updated on [facility] acceptance and [facility] auth for SNF and they request to finish working with PT right now to make decision of home vs SNF and very appreciative of DCP help. Plan: SW to follow closely after PT right now and to round about noon to determine [facility] vs home with family and new HH referral. VILLA Le
--- NOTE | 2024-09-21 12:49 | PM.PNPO.1 ---
Subjective Subjective Interval history: PATIENT SUMMARY Chirstine Torres is a postoperative day two patient who underwent intramedullary nailing for an intertrochanteric femur fracture. PAST SURGICAL HISTORY - Intramedullary nailing of intertrochanteric femur fracture performed on Friday by myself. No complications noted. SUBJECTIVE Christine reports feeling worse today compared to yesterday, particularly in terms of pain, which she associates with increased mobility and walking. She is engaged in physical therapy and is considering discharge options with the assistance of her son and a physical therapist. PHYSICAL EXAM Constitutional: Christine is alert and engaged in conversation, indicating a normal mental status. Musculoskeletal: Christine is ambulating with an antalgic gait using a walker. She displays intact femoral and sciatic nerve function. The wound examination was deferred as it was not visible during the assessment. LABS Hgb 9 ASSESSMENT - Postoperative recovery from intramedullary nailing of intertrochanteric femur fracture. PLAN - Continue physical therapy to improve mobility. - Discuss discharge logistics with social work and physical therapy to determine the most suitable setting, either senior living facility or home. DISPOSITION Planned discharge likely to a senior living facility due to mobility challenges and care needs. Timing to be determined. Exam Vital Signs (past 8 hours): - 09/21/24 05:14 Temperature 98.1 F Pulse Rate 104 H Respiratory Rate 16 Blood Pressure 108/59 L Pulse Oximetry 91 Fraction of Inspired Oxygen 32 SaO2/FiO2 Ratio 306 Oxygen Delivery Method Room Air Oxygen Flow Rate 0 Objective Labs 09/21/24 06:07 09/21/24 06:07 Labs: Laboratory Results - last 24 hr 09/21/24 06:07 WBC 11.1 H RBC 2.97 L Hgb 9.2 L Hct 27.4 L MCV 92.2 MCH 31.0 MCHC 33.6 RDW 14.1 Plt Count 165 Neut % (Auto) 70.9 Lymph % (Auto) 18.5 L [place] % (Auto) 5.3 Eos % (Auto) 4.7 H Baso % (Auto) 0.6 Neut # (Auto) 7900 H Lymph # (Auto) 2100 [place] # (Auto) 600 Eos # (Auto) 500 H Baso # (Auto) 100 Sodium 132 L Potassium 4.3 Chloride 104 Carbon Dioxide 26 BUN 21 H Creatinine 0.93 Estimated GFR > 60 BUN/Creatinine Ratio 22.6 H Glucose 111 H Calcium 8.9 PFSH Medical History Carpal tunnel syndrome (03/07/11) Abnormal mammogram (04/28/69) Chronic cough (1999) Asthma Hayfever (194) Shoulder pain (2002) Osteopenia (1999) Ankle fracture (2008) Ankle pain (2008) Plantar warts (1955) Eczema (194) Measles (1953) Chicken pox (1946) Anemia (1970) Urinary incontinence (2012) Thyroiditis (1989) Premature ventricular contractions (2011) Hyperlipidemia Colorectal cancer (2010) 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) Surgical History [place] teeth removed (04/28/1950) Anesthesia History of oral surgery (1999) History of squamous cell carcinoma excision (08/2013) History of excision of mass (04/2010) History of ankle surgery (06/2008) History of foot surgery (~1997) History of cataract removal with insertion of prosthetic lens Status post colonoscopy (02/2014) Status post colonoscopy (04/2011) Status post colonoscopy (10/2010) Status post colonoscopy (04/2010) Status post tubal ligation (~1984) Status post cholecystectomy (~1984) Status post breast biopsy Status post dilation and curettage (~1968) Status post dilation and curettage (~1967) History of tonsillectomy (1946) Family History Brother Alcohol abuse Diabetes mellitus Cancer Hypertension High cholesterol Septicemia Brother Alcohol abuse Drug abuse [place] Child Age: 53 High cholesterol Child Age: 50 Seasonal allergies Mother Hypertension High cholesterol Heart disease Breast cancer Sister Age: 75 Atrial fibrillation Father Emphysema of lung Family/Other No problems noted. Social History marital status: number of children: 3 household members: none lives independently: Yes caregiver/support person: No housing: house Smoking Status: Never smoker second hand exposure: No alcohol intake: former substance use type: does not use Assessment & Plan Post-op Postoperative Procedures: Procedures Operation Date: 09/19/24 09:15 Actual Procedure Side Surgeon p Left Hip Nailing Left Carlo Aguayo MD
[2024-09-21 13:00] VITALS: BP 106/58; PULSE 95; RESP 27; TEMP 37.3; O2SAT 96
--- NOTE | 2024-09-21 13:14 | CM.DPC ---
DCP Cont. Reviewed EMR and team rounds for status updates. Pt has been medically cleared for [facility] today [facility], they will come to transport her between 3-3:30pm this afternoon. PASSAR/d/c clinicals are faxed. No further CM d/c assistance or resource needs identified at this time.
--- NOTE | 2024-09-21 13:28 | PM.DS.IH.1 ---
History of Present Illness History of Present Illness Date Patient Seen: 09/21/24 Time Patient Seen: 12:45 Chief complaint: L hip pain Narrative: 84-year-old female, normally sees Dr. Myriam Maciel at [facility], who follows her for hyperlipidemia primarily, he was admitted via emergency department after falling and fracturing her left femur Patient was apparently out gardening on this very nice day today and tripped over portion of the sidewalk landing on her left hip. She was unable to get up and walk and or bear weight after that. EMS was summoned and she was transport [facility] Emergency Department In the [facility] Emergency Department she was found to have a fractured intertrochanteric left femur, with mild displacement Patient is very clear this was merely a mechanical fall, that she tripped. There was no syncope, near-syncope, lightheadedness, or dizziness. There were no palpitations, chest pain, shortness of breath, or other cardiovascular symptoms. Discharge Providers Provider Date of admission: 09/18/24 18:31 Discharge Date: 09/21/24 Primary care physician: Myriam Maciel MD Consults: 09/18/24 19:53 Consult to Physician Routine Comment: Consulting Provider: Carlo Aguayo Reason for consultation: fx femur Has provider been notified: Yes 09/19/24 12:23 Consult to Discharge Planning Routine Comment: Consult to Occupational Therapy Evaluate & Treat Comment: Physician Instructions: Evaluate and treat Consult to Physical Therapy Evaluate & Treat Comment: Physician Instructions: Evaluate and Treat Discharge provider: Myriam Maciel MD Summary Hospital Course Discharge Diagnosis: Left intertrochanteric femur fracture Hyperlipidemia Acute blood loss anemia Hospital Course: The pt was admitted with left intertrochanteric femur fracture. She underwent intramedullary nailing on 09/19, with increased EBL compared to usual due to anatomic variants. Postoperatively, there were no complications. The pt did have an appropriate drop in her H/H, and was started on an iron supplement at discharge. At the time of discharge her pain was well controlled. She was working with PT and making progress. She will discharge to a SNF for ongoing rehab, with the goal to discharge back home shortly where she does have 24/7 care available. Exam Vital Signs (past 8 hours): - 09/21/24 13:00 Temperature 99.2 F Pulse Rate 95 H Respiratory Rate 27 H Blood Pressure 106/58 L Pulse Oximetry 96 Fraction of Inspired Oxygen 32 SaO2/FiO2 Ratio 306 Oxygen Delivery Method Room Air Oxygen Flow Rate 0 Narrative Exam Narrative: Gen: NAD, sitting comfortably in chair CV: RRR Resp: clear to auscultation bilaterally Abd: soft, nontender, nondistended Ext: no edema Objective Labs 09/21/24 06:07 09/21/24 06:07 Labs: Laboratory Results - last 24 hr 09/21/24 06:07 WBC 11.1 H RBC 2.97 L Hgb 9.2 L Hct 27.4 L MCV 92.2 MCH 31.0 MCHC 33.6 RDW 14.1 Plt Count 165 Neut % (Auto) 70.9 Lymph % (Auto) 18.5 L [place] % (Auto) 5.3 Eos % (Auto) 4.7 H Baso % (Auto) 0.6 Neut # (Auto) 7900 H Lymph # (Auto) 2100 [place] # (Auto) 600 Eos # (Auto) 500 H Baso # (Auto) 100 Sodium 132 L Potassium 4.3 Chloride 104 Carbon Dioxide 26 BUN 21 H Creatinine 0.93 Estimated GFR > 60 BUN/Creatinine Ratio 22.6 H Glucose 111 H Calcium 8.9 PFSH Medical History Carpal tunnel syndrome (03/07/11) Abnormal mammogram (04/28/69) Chronic cough (1999) Asthma Hayfever (1941) Shoulder pain (2002) Osteopenia (1999) Ankle fracture (2008) Ankle pain (2008) Plantar warts (1955) Eczema (1941) Measles (1953) Chicken pox (1946) Anemia (1970) Urinary incontinence (2012) Thyroiditis (1989) Premature ventricular contractions (2011) Hyperlipidemia Colorectal cancer (2010) 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) Surgical History [place] teeth removed (04/28/1950) Anesthesia History of oral surgery (1999) History of squamous cell carcinoma excision (08/2013) History of excision of mass (04/2010) History of ankle surgery (06/2008) History of foot surgery (~1997) History of cataract removal with insertion of prosthetic lens Status post colonoscopy (02/2014) Status post colonoscopy (04/2011) Status post colonoscopy (10/2010) Status post colonoscopy (04/2010) Status post tubal ligation (~1984) Status post cholecystectomy (~1984) Status post breast biopsy Status post dilation and curettage (~1968) Status post dilation and curettage (~1967) History of tonsillectomy (1946) Family History Brother Alcohol abuse Diabetes mellitus Cancer Hypertension High cholesterol Septicemia Brother Alcohol abuse Drug abuse [place] Child Age: 53 High cholesterol Child Age: 50 Seasonal allergies Mother Hypertension High cholesterol Heart disease Breast cancer Sister Age: 75 Atrial fibrillation Father Emphysema of lung Family/Other No problems noted. Social History marital status: number of children: 3 household members: none lives independently: Yes caregiver/support person: No housing: house Smoking Status: Never smoker second hand exposure: No alcohol intake: former substance use type: does not use Discharge Plan Discharge Plan Patient Disposition: SNF Discharge orders & Medications Prescriptions: New acetaminophen 325 mg Tablet 650 mg PO Q4H PRN (Reason: Fever/Mild Pain (1-3)) Qty: 90 0RF aspirin 81 mg Tablet,Delayed Release (Dr/Ec) 81 mg PO BID Qty: 60 0RF bisacodyl 10 mg Suppository 10 mg [place] PRN PRN (Reason: Constipation) Qty: 30 0RF docusate sodium 100 mg Capsule 100 mg PO BID Qty: 60 0RF ibuprofen 400 mg Tablet 800 mg PO Q6HR PRN (Reason: Pain, Mild (1-3)) Qty: 90 0RF polyethylene glycol 3350 17 gram Powder In Packet 17 g PO DAILY Qty: 14 0RF oxycodone 5 mg Tablet 5 mg PO Q3HR PRN (Reason: Pain, Severe (7-10)) Qty: 30 0RF ferrous sulfate 325 mg (65 mg iron) tablet 325 mg PO DAILY Qty: 30 0RF Continued cholecalciferol (vitamin D3) 2,000 unit capsule 2,000 unit PO DAILY ciclopirox 8 % solution 1 applic topical BEDTIME CeraVe Cream 1 applic topical QD-BID PRN (Reason: Dry Skin) betamethasone dipropionate 0.05 % lotion 1 ea topical PRN PRN (Reason: Rash) Metamucil Sugar-Free (aspart) 3.4 gram/5.8 gram powder 2 g PO QAM simvastatin 20 mg tablet See Rx Instructions .ROUTE .COMPLEX Qty: 90 3RF Dose Instruction: Take 1 tablet (20 mg) by mouth daily Rx Instructions: Take 1 tablet (20 mg) by mouth daily calcium carbonate [Calcium 500] 500 mg calcium (1,250 mg) Tablet 250 mg PO DAILY Qty: 0 omega 1-plz-fig-fish oil [Fish Oil] 1,000 mg (120 mg-180 mg) Capsule 2 cap PO DAILY Qty: 0 azelastine-fluticasone 137-50 mcg/spray [place],Non-Aerosol 1 spray INTRANASAL QAM Follow up/Referrals: Myriam Maciel MD [Primary Care Provider] - 1 Month Diet/Activity/Treatments Diet: Diet as Tolerated and Regular Special Rehabilitation Services Reason for rehabilitation: Post-operative therapy Rehab type: Physical therapy and Occupational therapy Visit Report/Discharge Packet Stand Alone Forms: Patient Portal/API Discharge Data Primary Care Provider: Myriam Maciel PROFEE Charge Codes Discharge inpatient/observation: [id number]
== END 2024-09-21 15:47 | DRG 481 ==
LOC: ED 18:33 → AC 18:33
PROVIDERS: Emergency Medicine; Orthopaedic Surgery Adult Reconstructive Orthopaedic Surgery; Admitting Provider Internal Medicine; Emergency Provider Family Medicine; PCP Family Medicine; Referring Provider Family Medicine; Visit Provider Family Medicine
PROC: 0QS706Z Reposition Left Upper Femur with Intramedullary Internal Fixation Device, Open Approach (ICD-10-PCS; CPT 27245; principal; 2024-09-19 09:15)
DX: S72.142A Displaced intertrochanteric fracture of left femur, initial encounter for closed fracture (principal); D62 Acute posthemorrhagic anemia; E78.5 Hyperlipidemia, unspecified; R01.1 Cardiac murmur, unspecified; I10 Essential (primary) hypertension; W01.0XXA Fall on same level from slipping, tripping and stumbling without subsequent striking against object, initial encounter
CPT/HCPCS: 27245; 36415; 71045; 73502; 76000; 80048; 80053; 81001; 85025; 85610; 93005; 93010; 94762; 96374; 96376; 97162; 97166; 97530; 97535; 99222; 99232; 99233; 99238; 99284; A9270; C1713; J0131; J0330; J0666; J0690; J1100; J1171; J1885; J2405; J2704; J3360; J3410

== ENCOUNTER → 2024-10-15 12:28 | Outpatient (CLI) | payer OTHER, SELFPAY ==
[2024-09-18 20:11] VITALS: BMI 20.8
[2024-10-15 14:05] LABS: Add Manual Diff / Slide Review NO; Basophils Absolute Auto 100 /uL (0-100); Eosinophils Absolute Auto 400 /uL (0-450); Eosinophils Percent Auto 4.4 % (2-4); Hemoglobin 11.3 g/dL (12.0-16.0); Lymphocytes Absolute Auto 2200 /uL (1100-4500); Lymphocytes Percent Auto 24.2 % (25-40); Mean Corpuscular HGB Conc 33.2 % (30-36); Mean Corpuscular Hemoglobin 30.5 PG (26-34); Mean Corpuscular Volume 91.7 fL (80-100); Monocytes Absolute Auto 700 /uL (0-900); Monocytes Percent Auto 7.3 % (3-14); Neutrophils Absolute Auto 5800 /uL (1500-7000); Neutrophils Percent Auto 63.1 % (50-75); Platelet Count 597 X10^3/uL (150-400); Red Blood Cell Count 3.71 X10^6/uL (4.0-5.2); Red Cell Distribution Width 14.4 % (11.6-14.8); White Blood Cell Count 9.2 X10^3/uL (4.5-11.0)
== END ==
PROVIDERS: PCP Family Medicine; Referring Provider Family Medicine; Visit Provider Family Medicine
DX: D64.9 Anemia, unspecified (principal)
CPT/HCPCS: 36415; 85025

== ENCOUNTER → 2024-10-18 14:14 | Outpatient (CLI) | payer OTHER, SELFPAY ==
[2024-09-18 20:11] VITALS: BMI 20.8
--- NOTE | 2024-10-18 14:15 | DI.RAD.S_ITS ---
PROCEDURE: XR DEXA AXIAL SKELETON INDICATIONS: screening COMPARISON: None. FINDINGS: Lumbar Spine: Bone mineral density 0.822 g/cm2, T score -1.8. Right Femoral Neck: Bone mineral density 0.573 g/cm2, T score -2.5. Right Hip: Bone mineral density 0.713 g/cm2, T score -1.9. Fracture Risk Calculation (when applicable): 10-year fracture risk of a major osteoporotic fracture 23 percent and of a hip fracture 7.9 percent. (T score greater or equal to -1.0 to: NORMAL) (T score from -1.1 to -2.4: OSTEOPENIA) (T score less than or equal to -2.5: OSTEOPOROSIS) IMPRESSION: Osteoporosis--- recommend repeat DEXA in 2 years or less for reassessment of response to treatment. Follow-up guidelines as follows: Osteoporosis: Consider a repeat DEXA and Vertebral Fracture Assessment (VFA) exam in 2 years or sooner if medically necessary, to reassess this patient's status. Osteopenia: Consider a repeat DEXA in 2-3 years to reassess this patient's status, or if there is a new clinical indication. Normal: Consider a repeat DEXA in 5 years or sooner, or if there is a new clinical indication. All treatment decisions require clinical judgment and consideration of individual patient factors, including patient preferences, comorbidities, previous drug use, risk factors not captured in the FRAX model (e.g., frailty, falls, vitamin D deficiency, increased bone turnover, interval significant decline in bone density ) and possible under- or over-estimation of fracture risk by FRAX. In addition, the NOF Guide recommends that FDA-approved medical therapies be considered in postmenopausal women and men age >= 50 years with a: * Hip or vertebral (clinical or morphometric) fracture * T-score of <=-2.5 at the spine or hip * Ten-year fracture probability by FRAX of >= 3% for hip fracture or >=20% for major osteoporotic fracture. Dictated by: Bentley Brush M.D. on 10/18/2024 at 18:44 Approved by: Bentley Brush M.D. on 10/18/2024 at 18:47
== END ==
LOC: RAD 14:14
PROVIDERS: PCP Family Medicine; Referring Provider Family Medicine; Visit Provider Family Medicine
DX: M81.0 Age-related osteoporosis without current pathological fracture (principal)
CPT/HCPCS: 77080

== ENCOUNTER → 2025-02-23 14:30 | Outpatient (CLI) | payer OTHER, SELFPAY ==
[2024-11-02 11:37] VITALS: BMI 20.8
--- NOTE | 2025-02-23 14:31 | DI.RAD.S_ITS ---
PROCEDURE: XR KNEE LT 3V INDICATIONS: L knee pain TECHNIQUE: 3 views of the knee were acquired. COMPARISON: [facility], , XR KNEE LT 3V, 04/09/2022, 13:35. FINDINGS: Bones: No fractures or dislocations. No suspicious bony lesions. Decreased osseous mineralization. Soft tissues: No joint effusion. No suspicious soft tissue calcifications. IMPRESSION: No acute bony abnormality or significant effusion. No significant degenerative changes. Dictated by: Derik Santa M.D. on 02/23/2025 at 21:47 Approved by: Derik Santa M.D. on 02/23/2025 at 21:48
== END ==
PROVIDERS: PCP Family Medicine; Referring Provider Family Medicine; Visit Provider Family Medicine
DX: M25.562 Pain in left knee (principal)
CPT/HCPCS: 73562

== ENCOUNTER 2025-03-10 06:35 | Day surgery (SDC) | payer OTHER, SELFPAY ==
[2024-11-02 11:37] VITALS: BMI 20.8
--- NOTE | 2025-03-10 | PATH_ITS ---
[facility] Accession Number: [id number] No. of containers..02 Tissue . 01 Material submitted: . PART A: stomach - STOMACH, ANTRUM PART B: esophagus - ESOPHAGEAL . 01 Diagnosis: Part A: STOMACH, ANTRUM: Gastric mucosa with mild chronic inflammation. No Helicobacter organisms identified. No intestinal metaplasia, dysplasia, or malignancy identified. . Part B: ESOPHAGEAL: Squamous mucosa with no diagnostic alterations. Eosinophils are not increased. STO 03/21/2025 131 Local . 01 Electronically signed: . Pete Shea MD, Pathologist NPI- [id number] . 01 Gross description: . A. Received in formalin with two patient identifiers, and antral are two, 0.2-0.3 cm, lemon tissue fragments, entirely submitted in A1. . B. Received in formalin with two patient identifiers, and esophagus are two, 0.2-0.3 cm, lemon tissue fragments, entirely submitted in B1. ([id number]) /MRV 03/21/2025 131 Local . 01 Microscopic: . Part A: ANTRAL: An immunohistochemical stain was performed to evaluate for Helicobacter organisms and is negative. The control stains appropriately. * This test was developed and the performance characteristics were validated by [facility]. It has not been cleared or approved by the Food and Drug Administration. . 01 Pathologist provided ICD-10: K29.50 . 01 CPT . 284455, 023120, [id number] Specimen Comment: A courtesy copy of this report has been sent to [facility] Pathology Performed at: [address] [facility], [place], [place] [id number] MD Pete Shea MD Phone: [phone]
--- NOTE | 2025-03-10 06:16 | PM.HP.IH.1 ---
History of Present Illness History of Present Illness Date Patient Seen: 03/10/25 Chief complaint: Esophagogastroduodenoscopy/Colonoscopy Narrative: Presents for EGD/Colonoscopy today for GERD, history of colon cancer. 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) Surgical History [place] teeth removed (04/28/1950) Anesthesia History of oral surgery (1999) History of squamous cell carcinoma excision (08/2013) History of excision of mass (04/2010) History of ankle surgery (06/2008) History of foot surgery (~1997) History of cataract removal with insertion of prosthetic lens Status post colonoscopy (02/2014) Status post colonoscopy (04/2011) Status post colonoscopy (10/2010) Status post colonoscopy (04/2010) Status post tubal ligation (~1984) Status post cholecystectomy (~1984) Status post breast biopsy Status post dilation and curettage (~1968) Status post dilation and curettage (~1967) History of tonsillectomy (1946) Family History Brother Alcohol abuse Diabetes mellitus Cancer Hypertension High cholesterol Septicemia Brother Alcohol abuse Drug abuse Drowning Child Age: 53 High cholesterol Child Age: 50 Seasonal allergies Mother Hypertension High cholesterol Heart disease Breast cancer Sister Age: 75 Atrial fibrillation Father Emphysema of lung Family/Other No problems noted. Social History marital status: number of children: 3 household members: none lives independently: Yes caregiver/support person: No housing: house second hand exposure: No alcohol intake: former substance use type: does not use Meds Home Medications and Allergies Home Medications ?Medication ?Instructions ?Recorded ?Confirmed ?Type calcium carbonate (Calcium 500) 250 mg PO DAILY ##0 03/07/11 01/24/25 History omega 9-xyu-mpo-fish oil 1,000 mg 2 cap PO DAILY ##0 03/07/11 01/24/25 History (120 mg-180 mg) capsule (Fish Oil) cholecalciferol (vitamin D3) 50 2,000 unit PO DAILY 12/15/18 01/24/25 History mcg (2,000 unit) capsule ceramides 1,3,6-II (CeraVe topical 1 applic topical QD-BID PRN Dry 09/04/22 01/24/25 History cream) Skin ciclopirox 8 % topical solution 1 applic topical BEDTIME 09/04/22 01/24/25 History betamethasone dipropionate 0.05 % 1 ea topical PRN PRN Rash 08/18/24 01/24/25 History lotion psyllium husk 3.4 gram/5.8 gram 2 g PO QA Bowel health 08/18/24 01/24/25 History oral powder (Metamucil Sugar-Free (aspartame)) simvastatin 20 mg tablet See Rx Instructions .Route 08/18/24 01/24/25 Rx .COMPLEX #90 tabs Disabled Parking #1 ea 10/15/24 01/24/25 Rx azelastine 137 mcg-fluticasone 50 1 spray intranasal BID 12/20/24 01/24/25 History mcg/spray nasal spray sodium,potassium,mag sulfates 17.5 See Rx Instructions PO .COMPLEX 02/08/25 Rx gram-3.13 gram-1.6 gram oral soln #354 mL (Suprep Bowel Prep Kit) Allergies Allergy/AdvReac Type Severity Reaction Status Date / Time [id number]-CDI-CmG Reductase Allergy Severe Rash Verified 01/24/25 08:48 Inhibitor egg (EGG) Allergy Unknown Gastrointestinal Verified 01/24/25 08:48 Upset Iodinated Contrast Media AdvReac Severe Verified 01/24/25 08:48 (IODINATED CONTRAST MEDIA - INJECTABLE IV DYE) IODINE - PAINFUL AT INJECTION SITE erythromycin base AdvReac Mild GI UPSET Verified 01/24/25 08:48 (ERYTHROMYCIN BASE) oxycodone (OXYCODONE) AdvReac Mild GI UPSET Verified 01/24/25 08:48 diphtheria,pertussis AdvReac Verified 01/24/25 08:48 (acell),tetanu Exam Narrative Exam Narrative: Const General: healthy appearing, comfortable and no acute distress Orientation: alert and oriented x3 HENMT Ears: hearing grossly normal bilaterally Eyes Visual Sotelo: normal visual sotelo by confrontation Conjunctivae: conjunctivae normal Sclera: sclerae normal EOM: EOM intact bilaterally Resp Effort & Inspection: normal respiratory effort and able to speak in complete sentences Cardio Rate: regular rate GI Palpation: soft (NT) Extrem General: no pedal edema and no calf tenderness Assessment & Plan Assessment and plan (1) GERD (gastroesophageal reflux disease): Qualifiers: Esophagitis presence: without esophagitis Qualified Code(s): K21.9 - Gastro-esophageal reflux disease without esophagitis Status: Acute (2) Chronic cough: Status: Acute (3) CA in situ rectum: Status: Acute Plan Plan EGD/colonoscopy, possible biopsy. The risks, benefits and options regarding the procedure were explained to the patient in detail. Risk discussion included but not limited to: bleeding, perforation, unable to reach cecum, missed lesion. The patient was encouraged to ask questions and they were answered to their satisfaction. The patient understands and is agreeable to proceed. Time-Based Coding :: [TOTAL MINUTES] spent with patient and on the chart (including review of chart, obtaining history, exam, reviewing outside data, placing orders, documenting exam and treatment plan, and counseling patient) on [DATE]. [employer] Document charge(s): Yes Charge Codes Inpatient/observation care including admit and discharge same day: [id number]
[2025-03-10 07:02] VITALS: BP 145/85; PULSE 93; RESP 16; TEMP 36.2; O2SAT 98
[2025-03-10] MEDS: LACTATED RINGERS 1,000 ML 84 ML IV (07:15)
--- NOTE | 2025-03-10 07:41 | P.OP.EGD&C_ITS ---
Operative Date/Time/Diagnoses Date of procedure: 03/10/25 Time of procedure: 08:38 Pre-op diagnosis: GERD, chronic cough, colon cancer Post-op diagnosis: other (Gastritis, hiatal hernia) Procedure & Clinicians Study performed: EGD with biopsy, Colonoscopy Same procedure(s) as scheduled: Yes Indications: 85yo F with h/o GERD, chronic cough, colon cancer. Surgeon: Radu Sellers Anesthesia Type: MAC +/- Procedure Notes SCOAP/Timeout: Performed Procedure in detail: EGD Informed consent was obtained. The procedure, its risks, benefits, and alternatives were discussed. Patient understood and agreed to proceed. The patient was placed in the left lateral decubitus position with head elevated. Sedation given per anesthesia. The video endoscope was inserted into the oropharynx and guided under direct vision into the esophagus, stomach, and duodenum which were carefully examined. The scope was retroflexed to examine the hiatus and gastroesophageal junction. Antral biopsies were obtained for Helicobacter pylori. The patient tolerated the procedure very well. There were no apparent complications. Significant EGD findings: Z-line noted at: 36cm 3cm hiatal hernia without esophagitis, random distal esophageal biopsies taken No ulcer in duodenum, stomach body or esophagus, no polyps Gastritis in antrum and stomach body, antrum biopsied, small clots noted evidence for recent bleeding Duodenum normal Colonoscopy Patient placed in left lateral recumbent position. Time out was performed. Procedural sedation was administered by anesthesia. Examination began with a thorough inspection of the perianal area. There was no evidence of fissures, fistulae, external hemorrhoids or cutaneous malignancy. The colonoscope was then placed into the rectum and the lumen was insufflated with carbon dioxide. The scope was carefully advanced forward. Ultimately the cecum was intubated and confirmed by identification of the ileocecal valve, the appendiceal orifice and the confluence of the taenia. The scope was then slowly withdrawn examining the colon thoroughly in all directions. In the rectum, retroflexion of the scope was performed for inspection of the distal rectum and anal canal. ?Significant colonoscopy findings: ?1. Quality of the preparation-good, [place] 2-3, improved with irrigation/suction ?2. Sigmoid stricture at 20cm, had to use EGD scope and water endoscopy to pass stricture 3. Hyperplastic polyps in rectosigmoid, <3mm, no adenomatous polyps seen 4. Sigmoid diverticulosis 5. Large internal hemorrhoids Scope withdrawal time: 14 minutes Findings: diverticulosis, gastritis and other findings (sigmoid stricture) Specimen(s): other (biopsies) Estimated Blood Loss: 5 Complications: none Impression: Gastritis Sigmoid stricture Diverticulosis Internal hemorrhoids Post-procedure Recommendations: Colonscopy in 10 years and Will call with biopsy results Plan for aftercare: PACU then home Follow up: as needed Disposition: PACU
[2025-03-10 08:33] VITALS: BP 107/57; PULSE 77; RESP 16; TEMP 36.6; O2SAT 96
[2025-03-10 08:35] VITALS: BP 101/57; PULSE 75; RESP 16; O2SAT 96
[2025-03-10 08:40] VITALS: BP 122/60; PULSE 77; RESP 16; O2SAT 98
[2025-03-10 08:45] VITALS: BP 114/63; PULSE 78; RESP 16; O2SAT 95
[2025-03-10 08:50] VITALS: BP 126/64; PULSE 78; RESP 16; O2SAT 98
== END 2025-03-10 09:05 | disposition home or self-care (01) ==
PROVIDERS: PCP Family Medicine; Referring Provider Surgery; Visit Provider Surgery
PROC: 0DJ08ZZ Inspection of Upper Intestinal Tract, Via Natural or Artificial Opening Endoscopic (ICD-10-PCS; CPT 43239; principal; 2025-03-10 07:45)
PROC: 0DJD8ZZ Inspection of Lower Intestinal Tract, Via Natural or Artificial Opening Endoscopic (ICD-10-PCS; CPT 45378; 2025-03-10 07:45)
DX: D01.2 Carcinoma in situ of rectum (principal); K56.699 Other intestinal obstruction unspecified as to partial versus complete obstruction; K63.5 Polyp of colon; K64.8 Other hemorrhoids; K57.30 Diverticulosis of large intestine without perforation or abscess without bleeding; K21.9 Gastro-esophageal reflux disease without esophagitis; K29.50 Unspecified chronic gastritis without bleeding; K44.9 Diaphragmatic hernia without obstruction or gangrene; R05.3 Chronic cough
CPT/HCPCS: 43239; 45378; 45380; J2704; J7120

== ENCOUNTER → 2025-03-17 11:46 | Outpatient (CLI) | payer OTHER, SELFPAY ==
[2024-11-02 11:37] VITALS: BMI 20.8
[2025-03-17 12:58] LABS: Alanine Aminotransferase 19 IU/L (<35); Albumin 4.6 g/dL (3.5-5.0); Albumin Globulin Ratio 1.7 (1.0-2.8); Alkaline Phosphatase 82 U/L (38-126); Blood Urea Nitrogen 13 mg/dL (7-17); Calcium 10.3 mg/dL (8.4-10.2); Carbon Dioxide 29 mmol/L (22-32); Chloride 103 mmol/L (98-107); Estimated Glomerular Filt Rate > 60 mL/min (>60); Globulin 2.7 g/dL (1.7-4.1); Glucose 97 mg/dL (70-99); HEMOLYSIS < 15 (0-50); Potassium 4.3 mmol/L (3.4-5.1); Sodium 139 mmol/L (137-145); Total Protein 7.3 g/dL (6.3-8.2)
== END ==
PROVIDERS: PCP Family Medicine; Referring Provider Family Medicine; Visit Provider Family Medicine
DX: M81.0 Age-related osteoporosis without current pathological fracture (principal); Z79.899 Other long term (current) drug therapy
CPT/HCPCS: 36415; 80053